=== PATIENT | female | born 1945 | race Caucasian/White ===

== ENCOUNTER 2021-06-27 08:38 | Inpatient (IN) ==
[2021-06-27] MEDS ORDERED: KETOROLAC TROMETHAMINE 15 MG/ML VIAL IV ONE (09:01)
[2021-06-27] MEDS ORDERED: SODIUM CHLORIDE 0.9% 1000ML 1,000 ML IV ONE (09:01)
--- NOTE | 2021-06-27 09:05 | Emergency Department Note ---
Impression & Plan Cavitary lung disease, Pneumonia, Leukocytosis ED Provider Note NAME: JOANN FRANKS AGE: 75 SEX: F : 1945 ARRIVES VIA: Walk-In INFORMANT: Patient ED PROVIDER(S): Fede Ortiz DO CHIEF COMPLAINT: chest pain and shortness of breath HPI: Patient is a 75-year-old female with past medical history of hypertension and hyperlipidemia that presents to the ER for pleuritic right-sided chest pain which has been present since June 19. She also admits to a cough and runny nose. The pain is significantly worse with breathing or coughing. She does also admit to a sore throat. She had a fever today of 100.4. She has had chills and night sweats intermittently. She was referred in by her PCP. Recent travel to [place]. No belly pain nausea vomiting or diarrhea. No dysuria urgency or frequency. No other exacerbating or remitting factors. ROS: See above HPI for pertinent positives & negatives. A total of 10 systems reviewed and were otherwise negative. PAST MEDICAL HISTORY:See Below PAST SURGICAL HISTORY:See Below FAMILY HISTORY:See Below SOCIAL HISTORY:See Below HOME MEDICATIONS:See Below ALLERGIES:See Below VITALS:See Below PHYSICAL EXAMINATION: GENERAL: Sitting up in bed, alert, well appearing, well nourished, no distress, non-toxic EYE EXAM: normal conjunctiva. PERRL and EOM's grossly intact. OROPHARYNX: no exudate, no erythema, lips, buccal mucosa, and tongue normal and mucous membranes are moist NECK: supple, no nuchal rigidity, no adenopathy, non-tender CHEST: Right upper anterior chest wall pain on palpation LUNGS: Clear to auscultation. Normal chest wall mechanics HEART: no murmurs, S1 normal and S2 normal ABDOMEN: abdomen soft, non-tender, normo-active bowel sounds, no masses, no rebound or guarding. UPPER EXTREMITIES: upper extremities are grossly normal. LOWER EXTREMITIES: No pitting edema. NEURO EXAM: Normal sensorium, cranial nerves II-XII grossly intact, normal speech, no gross weakness of arms, no gross weakness of legs. MEDICAL DECISION MAKING: Patient is a 75-year-old female recently visited [place] presents the ER for upper respiratory symptoms associate with fever. IV was established blood work was obtained. Labs show leukocytosis of 14.8 thousand. No significant anemia. Chest x-ray with a lung mass. D-dimer was elevated. BMP with LFTs bilirubin and lipase is unremarkable. UA was contaminated. CT angio of the of the chest shows cavitary lesion in the right upper chest. Influenza and Covid were negative. Patient was given IV vancomycin and she was initially given Rocephin but this was switched to Zosyn to cover anaerobes. Did discuss with the hospitalist Dr. Meyer in regards to possible TB versus fungal infections. He was agreeable to seeing the patient and admitted. Patient was updated bedside. Triage Nursing notes reviewed. Limited review of prior medical records performed Vital Signs: reviewed and remarkable for HTN and tachy Differential diagnosis: Differential diagnoses includes but is not limited to acute coronary syndrome, myocardial infarction, pericarditis, pulmonary embolus, aortic dissection, pneumonia, pneumothorax, musculoskeletal, shingles, esophageal. ER treatment provided: See below Diagnostics interpreted by me: ECG: Sinus tachycardia rate of 102 Normal axis No PVCs QTC 430 Cardiac Monitoring: An order was placed for continuous cardiac monitoring. The monitor shows a rate of 101 with sinus rhythm. Laboratory studies: As stated above and show below. Imaging studies: CT angio of the chest shows no PEs but cavitary lung lesion with a pleural effusion Consultation(s): Discussed with the hospitalist from [facility] as stated above Procedures: none Critical Care: None Past Med/Surg History Medical History (Updated 06/27/21 @ 14:57 by Fede Ortiz DO) Dyslipidemia Hypertension Social History Smoking Status: Never smoker Hx Alcohol Use: Yes Alcohol type: wine Hx Substance Use: No Preferred Language: Bulgarian [employer]umbling [employer] Super[employer] Required: No Current Living Situation: Spouse Feels Safe at Home: Yes Assistive Devices: None Allergies Allergies Allergy/AdvReac Type Severity Reaction Status Date / Time morphine AdvReac Severe SEVERE Unverified 06/27/21 12:28 SEDATION Home Meds Home Medications Medication Instructions Recorded Confirmed multivitamin 1 tab PO QAM 08/15/19 06/27/21 nortriptyline 10 mg capsule 10 mg PO HS 08/15/19 06/27/21 vitamin B complex 1 tab PO QAM 08/15/19 06/27/21 cholecalciferol (vitamin D3) 1,250 50,000 mcg PO QAM 02/06/20 06/27/21 mcg (50,000 unit) tablet famotidine 10 mg tablet (Pepcid AC) 10 mg PO DAILY 02/06/20 06/27/21 rosuvastatin 20 mg tablet (Crestor) 20 mg PO DAILY 02/06/20 06/27/21 amlodipine 2.5 mg tablet 2.5 mg PO HS 01/19/21 06/27/21 gabapentin 100 mg capsule 200 mg PO HS 01/19/21 06/27/21 gabapentin 300 mg capsule 300 mg PO HS 01/19/21 06/27/21 Results & Data (ED) Vital Signs Vital Signs - 24 hr 06/27/21 08:43 06/27/21 08:54 06/27/21 08:59 Temperature 36.3 C L Temperature Source Temporal Artery Scan Pulse Rate 114 H 103 H Pulse Rate [Apical] Pulse Rate from SpO2 Sensor 103 H Pulse Rhythm Regular Pulse Rhythm [Apical] Pulse Strength Normal Pulse Strength [Apical] Respiratory Rate 20 28 H Respiratory Effort / Characteristics Non-Labored Spontaneous Short of Breath SOB on Exertion Respiratory Depth Normal Respiratory Pattern Regular Blood Pressure 126/76 Blood Pressure [Right Arm] Blood Pressure Mean 92 Blood Pressure Mean [Right Arm] Blood Pressure Position Sitting Blood Pressure Position [Right Arm] Pulse Oximetry 96 96 96 Oxygen Delivery Method Room Air Room Air Sepsis Recent Fever Within 48 Hours No Sepsis New/Unexplained Change in Mental Status No Sepsis Action Taken by Nursing No Action Required 06/27/21 09:00 06/27/21 09:11 06/27/21 09:13 Temperature Temperature Source Pulse Rate 102 H 102 H Pulse Rate [Apical] 106 H Pulse Rate from SpO2 Sensor 103 H Pulse Rhythm Pulse Rhythm [Apical] Regular Pulse Strength Pulse Strength [Apical] Normal Respiratory Rate 25 H 20 Respiratory Effort / Characteristics Non-Labored Spontaneous Non-Labored Respiratory Depth Normal Normal Respiratory Pattern Regular Regular Blood Pressure 137/75 Blood Pressure [Right Arm] 141/80 H Blood Pressure Mean 95 Blood Pressure Mean [Right Arm] 100 Blood Pressure Position Blood Pressure Position [Right Arm] Sitting Pulse Oximetry 95 97 Oxygen Delivery Method Room Air Room Air Room Air Sepsis Recent Fever Within 48 Hours Sepsis New/Unexplained Change in Mental Status Sepsis Action Taken by Nursing 06/27/21 09:15 06/27/21 09:30 06/27/21 09:38 Temperature Temperature Source Pulse Rate 90 108 H 90 Pulse Rate [Apical] Pulse Rate from SpO2 Sensor 91 H 91 H Pulse Rhythm Pulse Rhythm [Apical] Pulse Strength Pulse Strength [Apical] Respiratory Rate 31 H 25 H 18 Respiratory Effort / Characteristics Respiratory Depth Respiratory Pattern Blood Pressure 138/68 130/72 Blood Pressure [Right Arm] Blood Pressure Mean 91 91 Blood Pressure Mean [Right Arm] Blood Pressure Position Blood Pressure Position [Right Arm] Pulse Oximetry 97 95 Oxygen Delivery Method Sepsis Recent Fever Within 48 Hours Sepsis New/Unexplained Change in Mental Status Sepsis Action Taken by Nursing 06/27/21 09:44 06/27/21 10:02 06/27/21 10:15 Temperature Temperature Source Pulse Rate 84 Pulse Rate [Apical] 86 Pulse Rate from SpO2 Sensor 85 84 Pulse Rhythm Pulse Rhythm [Apical] Pulse Strength Pulse Strength [Apical] Respiratory Rate 20 20 Respiratory Effort / Characteristics Non-Labored Respiratory Depth Normal Respiratory Pattern Blood Pressure 115/78 Blood Pressure [Right Arm] 115/78 Blood Pressure Mean 90 Blood Pressure Mean [Right Arm] 90 Blood Pressure Position Blood Pressure Position [Right Arm] Pulse Oximetry 99 97 94 Oxygen Delivery Method Room Air Sepsis Recent Fever Within 48 Hours Sepsis New/Unexplained Change in Mental Status Sepsis Action Taken by Nursing 06/27/21 10:30 06/27/21 10:45 06/27/21 11:14 Temperature Temperature Source Pulse Rate 84 89 97 H Pulse Rate [Apical] Pulse Rate from SpO2 Sensor 84 88 93 H Pulse Rhythm Pulse Rhythm [Apical] Pulse Strength Pulse Strength [Apical] Respiratory Rate 13 22 27 H Respiratory Effort / Characteristics Respiratory Depth Respiratory Pattern Blood Pressure 119/80 Blood Pressure [Right Arm] Blood Pressure Mean 93 Blood Pressure Mean [Right Arm] Blood Pressure Position Blood Pressure Position [Right Arm] Pulse Oximetry 96 97 94 Oxygen Delivery Method Sepsis Recent Fever Within 48 Hours Sepsis New/Unexplained Change in Mental Status Sepsis Action Taken by Nursing 06/27/21 11:15 06/27/21 11:30 06/27/21 12:00 Temperature Temperature Source Pulse Rate 90 85 97 H Pulse Rate [Apical] Pulse Rate from SpO2 Sensor 91 H 84 83 Pulse Rhythm Pulse Rhythm [Apical] Pulse Strength Pulse Strength [Apical] Respiratory Rate 22 17 24 Respiratory Effort / Characteristics Respiratory Depth Respiratory Pattern Blood Pressure 130/72 139/76 Blood Pressure [Right Arm] Blood Pressure Mean 91 97 Blood Pressure Mean [Right Arm] Blood Pressure Position Blood Pressure Position [Right Arm] Pulse Oximetry 97 94 95 Oxygen Delivery Method Sepsis Recent Fever Within 48 Hours Sepsis New/Unexplained Change in Mental Status Sepsis Action Taken by Nursing 06/27/21 12:30 06/27/21 12:34 06/27/21 13:00 Temperature Temperature Source Pulse Rate 85 98 H 95 H Pulse Rate [Apical] Pulse Rate from SpO2 Sensor 85 85 95 H Pulse Rhythm Pulse Rhythm [Apical] Pulse Strength Pulse Strength [Apical] Respiratory Rate 15 18 18 Respiratory Effort / Characteristics Respiratory Depth Respiratory Pattern Blood Pressure 138/78 125/74 Blood Pressure [Right Arm] Blood Pressure Mean 98 91 Blood Pressure Mean [Right Arm] Blood Pressure Position Blood Pressure Position [Right Arm] Pulse Oximetry 96 98 98 Oxygen Delivery Method Sepsis Recent Fever Within 48 Hours Sepsis New/Unexplained Change in Mental Status Sepsis Action Taken by Nursing Laboratory Data Result diagrams: 06/27/21 09:04 06/27/21 09:04 Lab Results 06/27/21 06/27/21 06/27/21 Range/Units 08:55 08:55 09:04 WBC (4.8-10.8) K/uL RBC (4.2-5.4) M/uL Hgb (12.0-16.0) g/dL Hct (37-47) % MCV (80-100) fL MCH (25-34) pg MCHC (32-36) g/dL RDW Std Deviation (36.4-46.3) fL RDW Coeff of Duran (11.5-14.5) % Plt Count (130-400) K/uL MPV (7.4-10.4) fL Immature Gran % (Auto) % Neut % (Auto) % Lymph % (Auto) % Wetzel % (Auto) % Eos % (Auto) % Baso % (Auto) % Neut # (Auto) (1.4-6.5) K/uL Lymph # (Auto) (1.2-3.4) K/uL Wetzel # (Auto) (0.11-0.59) K/uL Eos # (Auto) (0-0.5) K/uL Baso # (Auto) (0-0.2) K/uL Immature Gran # (Auto) (0.00-0.02) K/uL D-Dimer 1980 H* (0-500) ug/L FEU Sodium (136-145) mmol/L Potassium (3.5-5.1) mmol/L Chloride (98-107) mmol/L Carbon Dioxide (21-32) mmol/L Anion Gap (3-11) BUN (6-23) mg/dl Creatinine (0.6-1.2) mg/dl Est Cr Clr Drug Dosing ml/min Est GFR ( Amer) ml/min Est GFR (Non-Af Amer) ml/min BUN/Creatinine Ratio (10-20) Glucose (70-99(Fasting)) mg/dl Calcium (8.5-10.1) mg/dl Total Bilirubin (0.2-1.0) mg/dl AST (13-39) U/L ALT (7-52) U/L Alkaline Phosphatase (34-104) U/L Troponin I (0-0.04) ng/ml Total Protein (6.0-8.3) gm/dl Albumin (3.4-5.0) gm/dl Globulin (2.5-4.0) gm/dl Albumin/Globulin Ratio (0.9-2) Lipase (11-82) U/L Procalcitonin (0-0.5) ng/ml Urine Color Urine Appearance (Clear) Urine pH (4.5-7.5) Ur Specific Byars (1.000-1.030) Urine Protein (Negative) Urine Glucose (UA) (Negative) Urine Ketones (Negative) Urine Blood (Negative) Urine Nitrite (Negative) Urine Bilirubin (Negative) Urine Urobilinogen (Negative) Ur Leukocyte Esterase (Negative) Urine WBC (Auto) (0-5) /hpf Urine RBC (Auto) (0-4) /hpf U Hyaline Cast (Auto) (0-5) /lpf U Epithel Cells (Auto) (0-5) /lpf Urine Bacteria (Auto) (Negative) Influ A Molecular Assay Negative (Negative) Influ B Molecular Assay Negative (Negative) SARS-CoV-2, RNA, NAAT NEGATIVE (NEGATIVE) 06/27/21 06/27/21 06/27/21 Range/Units 09:04 09:04 10:03 WBC 14.88 H (4.8-10.8) K/uL RBC 4.00 L (4.2-5.4) M/uL Hgb 12.8 (12.0-16.0) g/dL Hct 37.5 (37-47) % MCV 93.8 (80-100) fL MCH 32.0 (25-34) pg MCHC 34.1 (32-36) g/dL RDW Std Deviation 43.5 (36.4-46.3) fL RDW Coeff of Duran 12.7 (11.5-14.5) % Plt Count 366 (130-400) K/uL MPV 8.9 (7.4-10.4) fL Immature Gran % (Auto) 0.2 % Neut % (Auto) 77.1 % Lymph % (Auto) 9.1 % Wetzel % (Auto) 10.0 % Eos % (Auto) 3.4 % Baso % (Auto) 0.2 % Neut # (Auto) 11.47 H (1.4-6.5) K/uL Lymph # (Auto) 1.35 (1.2-3.4) K/uL Wetzel # (Auto) 1.49 H (0.11-0.59) K/uL Eos # (Auto) 0.51 H (0-0.5) K/uL Baso # (Auto) 0.03 (0-0.2) K/uL Immature Gran # (Auto) 0.03 H (0.00-0.02) K/uL D-Dimer (0-500) ug/L FEU Sodium 136 (136-145) mmol/L Potassium 3.6 (3.5-5.1) mmol/L Chloride 102 (98-107) mmol/L Carbon Dioxide 25 (21-32) mmol/L Anion Gap 9 (3-11) BUN 8 (6-23) mg/dl Creatinine 0.66 (0.6-1.2) mg/dl Est Cr Clr Drug Dosing 64.6 ml/min Est GFR ( Amer) 100.9 ml/min Est GFR (Non-Af Amer) 87.0 ml/min BUN/Creatinine Ratio 12.1 (10-20) Glucose 128 H (70-99(Fasting)) mg/dl Calcium 9.0 (8.5-10.1) mg/dl Total Bilirubin 0.6 (0.2-1.0) mg/dl AST 12 L (13-39) U/L ALT 10 (7-52) U/L Alkaline Phosphatase 92 (34-104) U/L Troponin I < 0.03 (0-0.04) ng/ml Total Protein 7.4 (6.0-8.3) gm/dl Albumin 3.5 (3.4-5.0) gm/dl Globulin 3.9 (2.5-4.0) gm/dl Albumin/Globulin Ratio 0.9 (0.9-2) Lipase 11 (11-82) U/L Procalcitonin (0-0.5) ng/ml Urine Color Dark Yellow Urine Appearance Clear (Clear) Urine pH 6.5 (4.5-7.5) Ur Specific Byars 1.018 (1.000-1.030) Urine Protein Trace H (Negative) Urine Glucose (UA) Negative (Negative) Urine Ketones 1+ H (Negative) Urine Blood Negative (Negative) Urine Nitrite Negative (Negative) Urine Bilirubin Negative (Negative) Urine Urobilinogen Negative (Negative) Ur Leukocyte Esterase 1+ H (Negative) Urine WBC (Auto) 5-10 H (0-5) /hpf Urine RBC (Auto) 5-10 H (0-4) /hpf U Hyaline Cast (Auto) 1-5 (0-5) /lpf U Epithel Cells (Auto) >30 H (0-5) /lpf Urine Bacteria (Auto) Negative (Negative) Influ A Molecular Assay (Negative) Influ B Molecular Assay (Negative) SARS-CoV-2, RNA, NAAT (NEGATIVE) 06/27/21 Range/Units 13:03 WBC (4.8-10.8) K/uL RBC (4.2-5.4) M/uL Hgb (12.0-16.0) g/dL Hct (37-47) % MCV (80-100) fL MCH (25-34) pg MCHC (32-36) g/dL RDW Std Deviation (36.4-46.3) fL RDW Coeff of Duran (11.5-14.5) % Plt Count (130-400) K/uL MPV (7.4-10.4) fL Immature Gran % (Auto) % Neut % (Auto) % Lymph % (Auto) % Wetzel % (Auto) % Eos % (Auto) % Baso % (Auto) % Neut # (Auto) (1.4-6.5) K/uL Lymph # (Auto) (1.2-3.4) K/uL Wetzel # (Auto) (0.11-0.59) K/uL Eos # (Auto) (0-0.5) K/uL Baso # (Auto) (0-0.2) K/uL Immature Gran # (Auto) (0.00-0.02) K/uL D-Dimer (0-500) ug/L FEU Sodium (136-145) mmol/L Potassium (3.5-5.1) mmol/L Chloride (98-107) mmol/L Carbon Dioxide (21-32) mmol/L Anion Gap (3-11) BUN (6-23) mg/dl Creatinine (0.6-1.2) mg/dl Est Cr Clr Drug Dosing ml/min Est GFR ( Amer) ml/min Est GFR (Non-Af Amer) ml/min BUN/Creatinine Ratio (10-20) Glucose (70-99(Fasting)) mg/dl Calcium (8.5-10.1) mg/dl Total Bilirubin (0.2-1.0) mg/dl AST (13-39) U/L ALT (7-52) U/L Alkaline Phosphatase (34-104) U/L Troponin I (0-0.04) ng/ml Total Protein (6.0-8.3) gm/dl Albumin (3.4-5.0) gm/dl Globulin (2.5-4.0) gm/dl Albumin/Globulin Ratio (0.9-2) Lipase (11-82) U/L Procalcitonin 0.21 (0-0.5) ng/ml Urine Color Urine Appearance (Clear) Urine pH (4.5-7.5) Ur Specific Byars (1.000-1.030) Urine Protein (Negative) Urine Glucose (UA) (Negative) Urine Ketones (Negative) Urine Blood (Negative) Urine Nitrite (Negative) Urine Bilirubin (Negative) Urine Urobilinogen (Negative) Ur Leukocyte Esterase (Negative) Urine WBC (Auto) (0-5) /hpf Urine RBC (Auto) (0-4) /hpf U Hyaline Cast (Auto) (0-5) /lpf U Epithel Cells (Auto) (0-5) /lpf Urine Bacteria (Auto) (Negative) Influ A Molecular Assay (Negative) Influ B Molecular Assay (Negative) SARS-CoV-2, RNA, NAAT (NEGATIVE) Administered Medications Discontinued Medications Sodium Chloride (Nss 1000ml) 1,000 mls @ 999 mls/hr IV .[id number] ONE Stop: 06/27/21 10:01 Last Infusion: 06/27/21 10:15 Dose: 0 mls/hr Documented by: [id number] Admin: 06/27/21 09:09 Dose: 999 mls/hr Documented by: [id number] Ceftriaxone Sodium (Rocephin) 1,000 mg in 50 mls @ 100 mls/hr IV NOW STA Stop: 06/27/21 12:23 Last Infusion: 06/27/21 13:25 Dose: 0 mls/hr Documented by: [id number] Infusion: 06/27/21 12:36 Dose: 0 mls/hr Documented by: [id number] Admin: 06/27/21 12:19 Dose: 100 mls/hr Documented by: [id number] Vancomycin HCl 1,250 mg/ (Sodium Chloride) 525 mls @ 200 mls/hr IV NOW ONE Stop: 06/27/21 14:40 Last Admin: 06/27/21 13:21 Dose: 200 mls/hr Documented by: [id number] Piperacillin Sod/Tazobactam Sod (Zosyn) 4.5 gm in 120 mls @ 240 mls/hr IV NOW ONE Stop: 06/27/21 12:44 Last Infusion: 06/27/21 13:25 Dose: 0 mls/hr Documented by: [id number] Admin: 06/27/21 12:36 Dose: 240 mls/hr Documented by: [id number] Ioversol (Optiray 320 125ml) 120 ml IV ONCE ONE Stop: 06/27/21 11:09 Last Admin: 06/27/21 11:09 Dose: 120 ml Documented by: [id number] Ketorolac Tromethamine (Ketorolac Tromethamine 15 Mg/Ml Vial) 15 mg IV NOW ONE Stop: 06/27/21 09:02 Last Admin: 06/27/21 09:10 Dose: 15 mg Documented by: [id number] Imaging Data Radiologist's Impression: Chest X-Ray 06/27/21 09:00 XR chest 1V portable HISTORY: Atypical Chest Pain COMPARISON: Chest 01/19/2021. FINDINGS: No pneumothorax. Trace right pleural effusion. The heart is normal in size. A few left basilar linear densities consistent with subsegmental atelectasis. Focal peripheral opacity within the right upper lobe which is new from the prior study. This favors a pneumonia given the short interval change. Right hilar prominence suggestive of associated lymphadenopathy. IMPRESSION: Interval development of a focal peripheral airspace opacity within the right upper lobe which likely represents a pneumonia given the short interval change. There is also fullness within the right hilum suggestive of associated lymphadenopathy. One-month chest x-ray follow-up recommended to ensure resolution. ACT 112: Positive. There are findings on this exam that require communication between the performing entity and the patient following Patient Test Result Information Act ([place] Act 112) guidelines. Electronically signed by: Clemente Goff M.D. 06/27/2021 9:58 AM Chest CTA 06/27/21 10:19 CHEST CTA for PULMONARY ARTERIES CT DOSE: 270.91 mGy.cm HISTORY: Atypical chest pain. TECHNIQUE: Multiaxial CT images of the chest were performed following the intravenous administration of contrast to evaluate the pulmonary arteries. Maximal intensity projection images were also obtained. A dose lowering t echnique was utilized adhering to the principles of ALARA. COMPARISON STUDY: Chest x-ray 06/27/2021 and 01/19/2021. FINDINGS: Limited views of the upper abdomen demonstrate a normal liver, spleen, and visualized adrenal glands. The thyroid gland enhances normally. No pericardial effusion. There is a small right and trace left pleural effusions. Normal esophagus. There is right paratracheal, anterior mediastinal, subcarinal, and right hilar lymphadenopathy. Dominant right hilar lymph node measures 2.4 cm. No left hilar lymphadenopathy. The heart is normal in size. Normal caliber thoracic aorta with no evidence for dissection. Mass effect along the right upper lobe pulmonary arteries due to the right hilar lymphadenopathy. Otherwise, no filling defects within the pulmonary arteries to suggest a pulmonary embolus. No suspicious lytic or blastic osseous lesions. No pneumothorax. There is mild narrowing within the right central bronchi due to the mass effect from the lymphadenopathy. A few bibasilar linear densities consistent with subsegmental atelectasis. Focal round consolidation within the periphery the right upper lobe measuring 4.5 cm. This demonstrates central hypodensity measuring approximately 1.9 cm. Therefore, this may represent a developing cavitary pneumonia, lung abscess, or possibly a mass. There is associated interlobular septal thickening and multiple scattered irregular cavitary nodules within the surrounding right upper lobe.. Dominant satellite nodule on image 221 measures 7 mm. There are a few additional subcentimeter scattered irregular nodules within the lungs with the dominant nodule within the left upper lobe on image 223 measuring 6 mm. Some of these demonstrate small groundglass halos. IMPRESSION: 1. No evidence for pulmonary embolus. 2. A 4.5 cm focal opacity within the periphery of the right upper lobe which corresponds to the chest x-ray abnormality. There is a small focus of central hypodensity. Therefore, this favors a developing cavitary pneumonia or lung abscess. This could be due to a bacterial pneumonia, fungal pneumonia, or possibly tuberculosis. Scattered pulmonary nodules and interlobular septal thickening within the right upper lobe may represent additional infectious change. 3. There is bulky right hilar and mediastinal lymphadenopathy which may be reactive. However, the right upper lobe focal opacity and lymphadenopathy could also be due to a neoplastic process with possibly lymphangitic spread given the interlobular septal thickening within the right upper lobe. Therefore, pulmonary consultation recommended. 4. Additional findings as described above. ACT 112: Negative or not required by law. Electronically signed by: Clemente Goff M.D. 06/27/2021 11:55 AM Discharge Plan Visit Data Chief Complaint: Shortness of Breath/Dyspnea Stated Complaint: SOB, DIZZINESS, HEADACHES, REF BY DOC ED Provider: Fede Ortiz Discharge Problem: Cavitary lung disease, Pneumonia, Leukocytosis Patient Disposition: Admitted As Inpatient Discharge Instructions Interventions: ED Discharge Assessment Last Done: 06/27/21 14:30
[2021-06-27 09:21] LABS: Basophils # (auto) 0.03 K/uL (0-0.2); Basophils % (auto) 0.2 %; Eosinophils # (auto) 0.51 K/uL (0-0.5); Eosinophils % (auto) 3.4 %; Hematocrit (blood only) 37.5 % (37-47); Hemoglobin 12.8 g/dL (12.0-16.0); Immature Granulocytes # (auto) 0.03 K/uL (0.00-0.02); Immature Granulocytes % (auto) 0.2 %; Lymphocytes # (auto) 1.35 K/uL (1.2-3.4); Lymphocytes % (auto) 9.1 %; Mean Corpuscular Hgb Conc 34.1 g/dL (32-36); Mean Corpuscular Volume 93.8 fL (80-100); Mean Platelet Volume 8.9 fL (7.4-10.4); Monocytes # (auto) 1.49 K/uL (0.11-0.59); Neutrophils # (auto) 11.47 K/uL (1.4-6.5); Neutrophils % (auto) 77.1 %; Platelet Count 366 K/uL (130-400); RDW Coefficient of Variation 12.7 % (11.5-14.5); RDW Standard Deviation 43.5 fL (36.4-46.3); White Blood Count 14.88 K/uL (4.8-10.8)
[2021-06-27 09:37] LABS: Influenza A virus by PCR Negative (Negative); Influenza B virus by PCR Negative (Negative)
[2021-06-27 09:44] LABS: Troponin I < 0.03 ng/ml (0-0.04)
[2021-06-27 09:47] LABS: Alanine Aminotransferase 10 U/L (7-52); Albumin Globulin Ratio 0.9 (0.9-2); Albumin Level 3.5 gm/dl (3.4-5.0); Alkaline Phosphatase 92 U/L (34-104); Anion Gap 9 (3-11); Aspartate Aminotransferase 12 U/L (13-39); BUN Creatinine Ratio 12.1 (10-20); Bilirubin,Total 0.6 mg/dl (0.2-1.0); Blood Urea Nitrogen 8 mg/dl (6-23); Carbon Dioxide 25 mmol/L (21-32); Chloride 102 mmol/L (98-107); Creatinine Clr Calc Pharmacy 64.6 ml/min; Est GFR (African American) 100.9 ml/min; Globulin 3.9 gm/dl (2.5-4.0); Glucose 128 mg/dl (70-99(Fasting)); Lipase 11 U/L (11-82); Potassium 3.6 mmol/L (3.5-5.1); Sodium 136 mmol/L (136-145); Total Protein 7.4 gm/dl (6.0-8.3)
--- NOTE | 2021-06-27 10:00 | XRay Report ---
XR chest 1V portable HISTORY: Atypical Chest Pain COMPARISON: Chest 01/19/2021. FINDINGS: No pneumothorax. Trace right pleural effusion. The heart is normal in size. A few left basi lar linear densities consistent with subsegmental atelectasis. Focal peripheral opacity within the ri ght upper lobe which is new from the prior study. This favors a pneumonia given the short interval ch aleksey. Right hilar prominence suggestive of associated lymphadenopathy. IMPRESSION: Interval development of a focal peripheral airspace opacity within the right upper lobe which likely represents a pneumonia given the short interval change. There is also fullness within the right hilum suggestive of associated lymphadenopathy. One-month chest x-ray follow-up recommended to ensure reso lution. ACT 112: Positive. There are findings on this exam that require communication between the performing entity and the patient following Patient Test Result [place] Act [place] Act 112) guidelines. Electronically signed by: Clemente Goff M.D. 06/27/2021 9:58 AM
[2021-06-27 10:18] LABS: D Dimer 1980 ug/L FEU (0-500)
[2021-06-27 10:22] LABS: Appearance Urine Clear (Clear); Bacteria Urine Automated Negative (Negative); Bilirubin Urine Negative (Negative); Blood Urine Negative (Negative); Color Urine Dark Yellow; Epithelial Cell Urine Auto >30 /lpf (0-5); Glucose Urine UA Negative (Negative); Ketones Urine 1+ (Negative); Leukocyte Esterase Urine 1+ (Negative); Nitrite Urine Negative (Negative); Protein Urine Trace (Negative); Specific Gravity Urine 1.018 (1.000-1.030); Urobilinogen Urine Negative (Negative); pH Urine 6.5 (4.5-7.5)
[2021-06-27] MEDS ORDERED: OPTIRAY 320 125ml IV ONE (11:08)
[2021-06-27] MEDS ORDERED: cefTRIAXone SODIUM 1,000 MG/50 ML BAG IV STA (11:54)
--- NOTE | 2021-06-27 11:57 | CT Scan Report ---
CHEST CTA for PULMONARY ARTERIES CT DOSE: 270.91 mGy.cm HISTORY: Atypical chest pain. TECHNIQUE: Multiaxial CT images of the chest were performed following the intravenous administration of contrast to evaluate the pulmonary arteries. Maximal intensity projection images were also obtaine d. A dose lowering technique was utilized adhering to the principles of ALARA. COMPARISON STUDY: Chest x-ray 06/27/2021 and 01/19/2021. FINDINGS: Limited views of the upper abdomen demonstrate a normal liver, spleen, and visualized adren al glands. The thyroid gland enhances normally. No pericardial effusion. There is a small right and t race left pleural effusions. Normal esophagus. There is right paratracheal, anterior mediastinal, sub carinal, and right hilar lymphadenopathy. Dominant right hilar lymph node measures 2.4 cm. No left hi lar lymphadenopathy. The heart is normal in size. Normal caliber thoracic aorta with no evidence for dissection. Mass effect along the right upper lobe pulmonary arteries due to the right hilar lymphade nopathy. Otherwise, no filling defects within the pulmonary arteries to suggest a pulmonary embolus. No suspicious lytic or blastic osseous lesions. No pneumothorax. There is mild narrowing within the r ight central bronchi due to the mass effect from the lymphadenopathy. A few bibasilar linear densitie s consistent with subsegmental atelectasis. Focal round consolidation within the periphery the right upper lobe measuring 4.5 cm. This demonstrates central hypodensity measuring approximately 1.9 cm. Th erefore, this may represent a developing cavitary pneumonia, lung abscess, or possibly a mass. There is associated interlobular septal thickening and multiple scattered irregular cavitary nodules within the surrounding right upper lobe.. Dominant satellite nodule on image 221 measures 7 mm. There are a few additional subcentimeter scattered irregular nodules within the lungs with the dominant nodule w ithin the left upper lobe on image 223 measuring 6 mm. Some of these demonstrate small groundglass johnson los. IMPRESSION: 1. No evidence for pulmonary embolus. 2. A 4.5 cm focal opacity within the periphery of the right upper lobe which corresponds to the chest x-ray abnormality. There is a small focus of central hypodensity. Therefore, this favors a developin g cavitary pneumonia or lung abscess. This could be due to a bacterial pneumonia, fungal pneumonia, o r possibly tuberculosis. Scattered pulmonary nodules and interlobular septal thickening within the ri ght upper lobe may represent additional infectious change. 3. There is bulky right hilar and mediastinal lymphadenopathy which may be reactive. However, the rig ht upper lobe focal opacity and lymphadenopathy could also be due to a neoplastic process with possib ly lymphangitic spread given the interlobular septal thickening within the right upper lobe. Therefor e, pulmonary consultation recommended. 4. Additional findings as described above. ACT 112: Negative or not required by law. Electronically signed by: Clemente Goff M.D. 06/27/2021 11:55 AM
[2021-06-27] MEDS ORDERED: VANCOMYCIN HCL 1,250 MG in SODIUM CHLORIDE 0.9% 500 ML IV ONE (12:03)
[2021-06-27] MEDS ORDERED: VANCOMYCIN CONSULT ACTIVE PRN (12:03)
[2021-06-27] MEDS ORDERED: PIPERACILLIN/TAZOBACTAM 4.5 GM/120 ML BAG IV ONE (12:15)
--- NOTE | 2021-06-27 13:24 | History & Physical Report ---
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 R/o bacterial pneumonia vs others. Continue vanc/zosyn, fluconazole. If MRSA nares negative, can discontinue vancomycin. C heck sputum culture, blood culture, procalcitonin, serology for coccidiomycosis, fungitell. Consult pulm for ?bronchoscopy for definitive diagnosis. Consider ID eval if needed. F/u on labs. I have very low suspicion for TB, hence will not order airborne isolation or work up for the same. Low suspicion for malignancy at present. Defer further work up to pulmonology. Tylenol prn for pain. HTN- stable, continue norvasc HLD- continue crestor RLS- continue gabapentin 500 hs. Does not take pamelor or trazodone anymore. GERD- continue pepcid. Add PPI if needed. Code status- full code but she does not want to be aggressive DVT prophylaxis- sc lovenox History of Present Illness Chief Complaint: Pleuritic chest pain Primary Care Provider: Jaz Green MD 75 year old female with h/o HTN, HLD, PMR now off of prednisone since 03/2021, RLS on neurontin, who presented to the ED with right sided pleuritic chest pain since 06/29. Patient was in [place] for 2 months, in a trailer and going around and came back on 06/12. Also was in [place] for couple weeks in the beginning. Had some dizziness and headaches intermittently. Saw PCP on 06/18 for runny nose, dizziness and was prescribed flonase which helped somewhat. But on 06/19, she developed pleuritic chest pain on right side and has been taking tylenol. Also complains of chills, drenching sweats, and bilateral pain for the past week. Denies any skin rash. Some dry cough but she had it in the past too. Had fever of 100.4 F in the morning today. She called her PCP and was instructed to come to the ED. She was with her who does not have any symptoms. Denies any history of weight loss. No exposure to TB contacts. No h/o malignancy. In the ED, afebrile, hemodynamically stable. Saturating well in room air. Not sick looking. CXR and CT chest reviewed- showed cavitary pneumonia with lymphadenopathy. She was started on ceftriaxone followed by Feliberto/narayan in the ED. Hospitalist service was consulted for further management. Allergies Allergy/AdvReac Type Severity Reaction Status Date / Time morphine AdvReac Severe SEVERE Unverified 06/27/21 12:28 SEDATION Home Medications Medication Instructions Recorded Confirmed Type multivitamin 1 tab PO QAM 08/15/19 06/27/21 History nortriptyline 10 mg capsule 10 mg PO HS 08/15/19 06/27/21 History vitamin B complex 1 tab PO QAM 08/15/19 06/27/21 History cholecalciferol (vitamin D3) 1,250 50,000 mcg PO QAM 02/06/20 06/27/21 History mcg (50,000 unit) tablet famotidine 10 mg tablet (Pepcid AC) 10 mg PO DAILY 02/06/20 06/27/21 History rosuvastatin 20 mg tablet (Crestor) 20 mg PO DAILY 02/06/20 06/27/21 History amlodipine 2.5 mg tablet 2.5 mg PO HS 01/19/21 06/27/21 History gabapentin 100 mg capsule 200 mg PO HS 01/19/21 06/27/21 History gabapentin 300 mg capsule 300 mg PO HS 01/19/21 06/27/21 History Past Med/Surg History Medical History (Updated 06/27/21 @ 14:24 by Jb Callahan MD) Dyslipidemia Hypertension Social History Smoking Status: Never smoker Hx Alcohol Use: Yes Alcohol type: wine Hx Substance Use: No Preferred Language: Irish Guide Escort Required: No Current Living Situation: Spouse Feels Safe at Home: Yes Assistive Devices: None Review of Systems Review of Systems: All systems reviewed & are unremarkable except as noted in Subjective Physical Exam Physical Exam: General: Lying comfortably in bed, not in distress, on room air HEENT: EOMI, GILSON, MMM Chest: Clear breath sounds bilaterally, no wheezes or crackles CVS: Regular rate and rhythm, normal heart sounds, no murmur Abdomen: Soft, non tender, not distended, normal bowel sounds Neuro: Awake, alert, oriented, conversing well, non focal Extremities: No cyanosis, clubbing or edema Results & Data Results & Data ([facility]) Vital Signs (Past 12 Hours) Vital Signs Temp Pulse Pulse Resp BP BP Pulse Ox 06/27/21 11:15 90 22 97 06/27/21 11:14 97 H 27 H 94 06/27/21 10:45 89 22 97 06/27/21 10:30 84 13 119/80 96 06/27/21 10:15 84 20 94 06/27/21 10:02 97 06/27/21 09:44 86 20 115/78 115/78 99 06/27/21 09:38 90 18 130/72 95 06/27/21 09:30 108 H 25 H 138/68 06/27/21 09:15 90 31 H 97 06/27/21 09:11 102 H 20 97 06/27/21 09:00 102 H 106 H 25 H 137/75 141/80 H 95 06/27/21 08:59 103 H 28 H 96 06/27/21 08:54 96 06/27/21 08:43 36.3 C L 114 H 20 126/76 96 Code Status & VTE Plan VTE Prophylaxis Plan VTE Prophylaxis will be ordered: Yes
[2021-06-27] MEDS ORDERED: PIPERACILL/TAZOBAC CONSULT ACTIVE PRN (14:55)
[2021-06-27] MEDS ORDERED: ALBUT/IPRATROP 3MG/0.5MG NEB 3 ML VIAL NEB PRN (14:55)
[2021-06-27] MEDS: ACETAMINOPHEN 325 MG TAB PO PRN ×2 (15:30→21:45)
[2021-06-27] MEDS ORDERED: ENOXAPARIN INJ 40 MG/0.4 ML SYR SQ SCH (16:00)
[2021-06-27] MEDS: FLUCONAZOLE 100 MG TAB PO SCH (16:08)
[2021-06-27] MEDS: PIPERACILLIN/TAZOBACTAM 3.375 GM in DEXTROSE 5% 100 ML IV SCH (17:40)
[2021-06-27] MEDS: amLODIPine BESYLATE 5 MG TAB PO SCH (20:12)
[2021-06-27] MEDS: GABAPENTIN 100 MG CAP PO SCH (20:12)
[2021-06-27] MEDS: GABAPENTIN 300 MG CAP PO SCH (20:12)
[2021-06-28] MEDS: PIPERACILLIN/TAZOBACTAM 3.375 GM in DEXTROSE 5% 100 ML IV SCH ×2 (01:18→09:43)
[2021-06-28 06:09] LABS: Basophils # (auto) 0.04 K/uL (0-0.2); Basophils % (auto) 0.3 %; Eosinophils # (auto) 0.67 K/uL (0-0.5); Eosinophils % (auto) 5.9 %; Hematocrit (blood only) 34.2 % (37-47); Hemoglobin 11.8 g/dL (12.0-16.0); Immature Granulocytes # (auto) 0.02 K/uL (0.00-0.02); Immature Granulocytes % (auto) 0.2 %; Lymphocytes # (auto) 1.67 K/uL (1.2-3.4); Lymphocytes % (auto) 14.6 %; Mean Corpuscular Hemoglobin 32.1 pg (25-34); Mean Corpuscular Hgb Conc 34.5 g/dL (32-36); Mean Corpuscular Volume 92.9 fL (80-100); Mean Platelet Volume 8.6 fL (7.4-10.4); Monocytes # (auto) 1.22 K/uL (0.11-0.59); Monocytes % (auto) 10.7 %; Neutrophils # (auto) 7.81 K/uL (1.4-6.5); Neutrophils % (auto) 68.3 %; Platelet Count 354 K/uL (130-400); RDW Coefficient of Variation 12.7 % (11.5-14.5); RDW Standard Deviation 43.2 fL (36.4-46.3); Red Blood Count 3.68 M/uL (4.2-5.4); White Blood Count 11.43 K/uL (4.8-10.8)
[2021-06-28 06:32] LABS: Calcium 8.4 mg/dl (8.5-10.1); Creatinine Clr Calc Pharmacy 60.9 ml/min; Est GFR (African American) 98.9 ml/min; Est GFR (Non-African American) 85.4 ml/min; Potassium 3.4 mmol/L (3.5-5.1)
[2021-06-28] MEDS: FLUCONAZOLE 100 MG TAB PO SCH (07:49)
[2021-06-28] MEDS: FAMOTIDINE 10 MG TABLET PO SCH (07:50)
[2021-06-28] MEDS: ROSUVASTATIN CALCIUM 20 MG TAB PO SCH (07:50)
[2021-06-28] MEDS ORDERED: POTASSIUM CHLORIDE CRTAB 20 MEQ TABCR PO STA (10:07)
--- NOTE | 2021-06-28 10:36 | Electrocardiogram Report ---
Test Reason : Blood Pressure : / mmHG Vent. Rate : 102 BPM Atrial Rate : 102 BPM P-R Int : 136 ms QRS Dur : 078 ms QT Int : 330 ms P-R-T Axes : 052 028 046 degrees QTc Int : 430 ms Sinus tachycardia Otherwise normal ECG When compared with ECG of 19-JAN-2021 05:56, No significant change was found Confirmed by El Perez ([id number]) on 06/28/2021 10:35:53 AM Referred By: REFERRED SELF Confirmed By:El Perez
--- NOTE | 2021-06-28 10:43 | Pulmonary Consultation ---
Date of Consultation June 28, 2021 Assessment & Plan (1) Abnormal CT scan of lung: (2) Mediastinal adenopathy: Impression: 75-year-old female non-smoker with prior history of PMR on chronic prednisone up until about 3 months ago presenting with spiculated right upper lobe lesion with what appears to be extensive lymphangitic involvement as well as hilar and mediastinal adenopathy. Pattern is highly concerning for potential lung malignancy although other etiologies may have a similar ap pearance. Adenopathy is not common in coccidiomycosis and the patient did not present with peripheral eosinophilia. She was on steroids which raises the possibility of other opportunistic infections but she has been off the steroids for 3 months so this would be less likely. Recommendations: 1. The patient will be evaluated with bronchoscopy and endobronchial ultrasound with transbronchial needle aspiration of mediastinal and hilar lymph nodes. Dr. Rock will be assuming the service tomorrow and will coordinate the procedure. Will defer to him as to whether or not the procedure can be completed in the bronchoscopy suite or if he would prefer it be done in the OR. 2. Additional work-up will depend on results of TB NA. 3. With a normal procalcitonin, I think antibiotics can be safely discontinued. There is no role for antifungal therapy currently until were able to evaluate the etiology of the upper lobe lung lesion. 4. Coccidiomycosis serologies have been sent but may take several days to weeks to come back. 5. We will proceed with MRI of the brain with contrast given her headache and need for staging with lesion greater than 6. The patient will likely require outpatient PET scanning depending on results of the bronchoscopy. 7. N.p.o. after midnight. We will check coagulation profile. The above recommendations and plan were extensively discussed with the patient at the time of evaluation. Questions were answered to the best my ability. She expressed understanding and is in agreement with plan as outlined. History of Present Illness Attending Physician: Maxim Ellington MD History of Present Illness Asked by hospitalist to evaluate this patient admitted with abnormal CT scan. History is obtained from review electronic medical record and interview the patient at bedside. Patient is a 75-year-old female who is a lifelong non-smoker with a history of secondhand tobacco exposure who presented to the hospital with 2-week history of left-sided pleuritic chest pain. The patient has a history of PMR and was on steroids up until March. She does not appear to have ever been on prophylactic antibiotics during the course of her prednisone. She and her spent the winter in [place] and returned back to [place] in May. She has had some shortness of breath and a nonproductive cough. 2 weeks ago she developed chest pain which failed to improve. She was seen by her primary care provider as she had a variety of other complaints including headache and some hip pain. She was referred to physical therapy. When the chest discomfort failed to improve she presented to the emergency room where she was studied with a CT scan which demonstrated a spiculated right upper lobe mass with mediastinal and hilar adenopathy. There was concerned about coccidiomycosis given her travel to [facility] and she was placed on fluconazole. Cocci serologies have been sent. She demonstrated no eosinophilia. She was placed on Zosyn for antibiotic coverage despite a normal procalcitonin. Her white count was slightly elevated. Patient continues to have episodes of cough and chest discomfort. She not had any vision changes. No nausea or vomiting. No loss of consciousness. She denies skin rashes or lesions. No arthralgias other than her hip discomfort. Patient does not have any prior history of lung disease. There is no family history of lung cancer that she is aware of. 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 No other occupational or environmental exposures. Her remaining medical history and review of systems is unremarkable. Allergies Allergy/AdvReac Type Severity Reaction Status Date / Time morphine AdvReac Severe SEVERE Verified 06/27/21 15:31 SEDATION Home Medications Medication Instructions Recorded Confirmed Type multivitamin 1 tab PO QAM 08/15/19 06/27/21 History nortriptyline 10 mg capsule 10 mg PO HS 08/15/19 06/27/21 History vitamin B complex 1 tab PO QAM 08/15/19 06/27/21 History cholecalciferol (vitamin D3) 1,250 50,000 mcg PO QAM 02/06/20 06/27/21 History mcg (50,000 unit) tablet famotidine 10 mg tablet (Pepcid AC) 10 mg PO DAILY 02/06/20 06/27/21 History rosuvastatin 20 mg tablet (Crestor) 20 mg PO DAILY 02/06/20 06/27/21 History amlodipine 2.5 mg tablet 2.5 mg PO HS 01/19/21 06/27/21 History gabapentin 100 mg capsule 200 mg PO HS 01/19/21 06/27/21 History gabapentin 300 mg capsule 300 mg PO HS 01/19/21 06/27/21 History Patient History Medical History (Updated 06/28/21 @ 10:38 by Hunter Bishop MD) Dyslipidemia Hypertension Social History Smoking Status: Never smoker Hx Alcohol Use: Yes Alcohol type: beer and wine Hx Substance Use: No Preferred Language: Croatian Communication Ability: Effective Hr Administrative Assistant Required: No Beliefs That Will Affect Care: None Current Living Situation: Spouse Other Information That Helps Us Care for You: No Feels Safe at Home: Yes Safety Concerns: Feels Safe At This Time Assistive Devices: Glasses Review of Systems Review of Systems: All systems reviewed & are unremarkable except as noted in Subjective Physical Exam Constitutional: WD/WN, vitals as above Neck: trachea midline, no thyromegaly Respiratory: normal respiratory effort, lungs clear to auscultation Cardiovascular: RRR, no murmur, no edema Gastrointestinal (Abdomen): normal bowel sounds, soft, nontender, no hepatosplenomegaly Musculoskeletal: Extremities: extremities normal to inspection Skin: no rashes, warm and dry Neurologic: Nonfocal exam Lymphatic: no cervical lymphadenopathy Results & Data Results & Data ([facility]) Vital Signs (Past 12 Hours) Vital Signs Temp Pulse Resp BP Pulse Ox 06/28/21 07:41 36.8 C 98 H 16 129/77 97 06/27/21 22:57 37.6 C H 95 H 16 126/76 93 Critical Care Results & Data Vital Signs (Past 12 Hours) Vital Signs Temp Pulse Resp BP Pulse Ox 06/28/21 07:41 36.8 C 98 H 16 129/77 97 06/27/21 22:57 37.6 C H 95 H 16 126/76 93 Lab & Micro Results (Past 24 Hours) RBC 3.68 M/uL (4.2-5.4) L 06/28/21 WBC 11.43 K/uL (4.8-10.8) H 06/28/21 Hgb 11.8 g/dL (12.0-16.0) L 06/28/21 Hct 34.2 % (37-47) L 06/28/21 MCV 92.9 fL (80-100) 06/28/21 MCH 32.1 pg (25-34) 06/28/21 MCHC 34.5 g/dL (32-36) 06/28/21 RDW Standard Deviation 43.2 fL (36.4-46.3) 06/28/21 RDW Coefficient of Variation 12.7 % (11.5-14.5) 06/28/21 Plt Count 354 K/uL (130-400) 06/28/21 MPV 8.6 fL (7.4-10.4) 06/28/21 Neutrophils (%) (Auto) 68.3 % 06/28/21 Lymphocytes (%) (Auto) 14.6 % 06/28/21 Monocytes # (Auto) 1.22 K/uL (0.11-0.59) H 06/28/21 Eosinophils # (Auto) 0.67 K/uL (0-0.5) H 06/28/21 Immature Granulocyte % (Auto) 0.2 % 06/28/21 Neutrophils # (Auto) 7.81 K/uL (1.4-6.5) H 06/28/21 Lymphocytes # (Auto) 1.67 K/uL (1.2-3.4) 06/28/21 Monocytes # (Auto) 1.22 K/uL (0.11-0.59) H 06/28/21 Eosinophils # (Auto) 0.67 K/uL (0-0.5) H 06/28/21 Basophils # (Auto) 0.04 K/uL (0-0.2) 06/28/21 Immature Granulocyte # (Auto) 0.02 K/uL (0.00-0.02) 06/28/21 Na 139 mmol/L (136-145) 06/28/21 K 3.4 mmol/L (3.5-5.1) L 06/28/21 Cl 106 mmol/L (98-107) 06/28/21 CO2 26 mmol/L (21-32) 06/28/21 Anion Gap 7 (3-11) 06/28/21 BUN 7 mg/dl (6-23) 06/28/21 Creatinine 0.70 mg/dl (0.6-1.2) 06/28/21 Estimated GFR ( Amer) 98.9 ml/min 06/28/21 Estimated GFR (Non-Af Amer) 85.4 ml/min 06/28/21 BUN/Creatinine Ratio 10.0 (10-20) 06/28/21 Glu 120 mg/dl (70-99(Fasting)) H 06/28/21 Ca 8.4 mg/dl (8.5-10.1) L 06/28/21 Calcium Level 8.4 mg/dl (8.5-10.1) L 06/28/21 05:40 06/28/21 Microbiology 06/27/21 13:45 Gram Stain - Final Sputum, Expectorated Sputum Culture - Final 06/27/21 13:03 Fungal Smear - Final Blood Diagnostic Findings (Past 24 Hours) Chest CTA 06/27/21 10:19 CHEST CTA for PULMONARY ARTERIES CT DOSE: 270.91 mGy.cm HISTORY: Atypical chest pain. TECHNIQUE: Multiaxial CT images of the chest were performed following the intravenous administration of contrast to evaluate the pulmonary arteries. Maximal intensity projection images were also obtained. A dose lowering technique was utilized adhering to the principles of ALARA. COMPARISON STUDY: Chest x-ray 06/27/2021 and 01/19/2021. FINDINGS: Limited views of the upper abdomen demonstrate a normal liver, spleen, and visualized adrenal glands. The thyroid gland enhances normally. No pericardial effusion. There is a small right and trace left pleural effusions. Normal esophagus. There is right paratracheal, anterior mediastinal, subcarinal, and right hilar lymphadenopathy. Dominant right hilar lymph node measures 2.4 cm. No left hilar lymphadenopathy. The heart is normal in size. Normal caliber thoracic aorta with no evidence for dissection. Mass effect along the right upper lobe pulmonary arteries due to the right hilar lymphadenopathy. Otherwise, no filling defects within the pulmonary arteries to suggest a pulmonary embolus. No suspicious lytic or blastic osseous lesions. No pneumothorax. There is mild narrowing within the right central bronchi due to the mass effect from the lymphadenopathy. A few bibasilar linear densities consistent with subsegmental atelectasis. Focal round consolidation within the periphery the right upper lobe measuring 4.5 cm. This demonstrates central hypodensity measuring approximately 1.9 cm. Therefore, this may represent a developing cavitary pneumonia, lung abscess, or possibly a mass. There is associated interlobular septal thickening and multiple scattered irregular cavitary nodules within the surrounding right upper lobe.. Dominant satellite nodule on image 221 measures 7 mm. There are a few additional subcentimeter scattered irregular nodules within the lungs with the dominant nodule within the left upper lobe on image 223 measuring 6 mm. Some of these demonstrate small groundglass halos. IMPRESSION: 1. No evidence for pulmonary embolus. 2. A 4.5 cm focal opacity within the periphery of the right upper lobe which corresponds to the chest x-ray abnormality. There is a small focus of central hypodensity. Therefore, this favors a developing cavitary pneumonia or lung absc ess. This could be due to a bacterial pneumonia, fungal pneumonia, or possibly tuberculosis. Scattered pulmonary nodules and interlobular septal thickening within the right upper lobe may represent additional infectious change. 3. There is bulky right hilar and mediastinal lymphadenopathy which may be reactive. However, the right upper lobe focal opacity and lymphadenopathy could also be due to a neoplastic process with possibly lymphangitic spread given the interlobular septal thickening within the right upper lobe. Therefore, pulmonary consultation recommended. 4. Additional findings as described above. ACT 112: Negative or not required by law. Electronically signed by: Clemente Goff M.D. 06/27/2021 11:55 AM I & O Totals 24 Hours 06/27/21 06/28/21 06/29/21 06:59 06:59 06:59 Intake Total 2325.000 / 2325.000 Balance 2325.000 / 2325.000 Cumulative 06/27/21 08:38 thru 06/28/21 07:59 Intake Total 2325.000 Balance 2325.000 RT Ventilator Mngmt (Last Documented) Ventilator Ordered Settings Respiratory Rate 16 06/28/21 07:41 Ventilator - PT Measurements Respiratory Rate 16 PG Care Time/CCT Total # of Minutes Spent Total Time Spent with Patient: Total time spent is greater than 50% in coordination of care (as documented) at patient's floor/unit and/or counseling patient: Coding Level of Care Code 22208 Initial Inpt Care Lvl [address] scan of lung R91.8 Mediastinal adenopathy R59.0
[2021-06-28 11:03] LABS: INR 1.1 (0.9-1.1); Prothrombin Time 11.3 Seconds (9.0-12.0)
--- NOTE | 2021-06-28 11:20 | Electrocardiogram Report ---
Test Reason : Blood Pressure : / mmHG Vent. Rate : 084 BPM Atrial Rate : 084 BPM P-R Int : 150 ms QRS Dur : 080 ms QT Int : 372 ms P-R-T Axes : 052 030 043 degrees QTc Int : 439 ms Normal sinus rhythm Normal ECG When compared with ECG of 27-JUN-2021 08:54, (unconfirmed) No significant change was found Confirmed by El Perez ([id number]) on 06/28/2021 11:20:38 AM Referred By: REFERRED SELF Confirmed By:El Perez
[2021-06-28] MEDS ORDERED: GADOBUTROL 7.5ML VIAL IV ONE (11:36)
--- NOTE | 2021-06-28 11:57 | Magnetic Resonance Report ---
MRI OF THE BRAIN COMBO CLINICAL HISTORY: Lung cancer. COMPARISON STUDY: CT of the brain dated 08/15/2019. TECHNIQUE: MRI of the brain was performed utilizing various T1 and T2-weighted sequences in the axial , sagittal, and coronal planes. Contrast-enhanced sequences were acquired following the administratio n of 6.5 cc of Gadavist. FINDINGS: Brain parenchyma: A large focus of left frontal encephalomalacia is unchanged and consistent with a r emote insult. There is mild age-related involutional change. There is no hemorrhage or mass effect. T here is no restricted diffusion typical for acute ischemia. No enhancing mass lesion is identified on the postcontrast images. Lees-white matter differentiation is preserved. No extra-axial fluid collec tion is seen. The cerebellar tonsils are normal in configuration. Ventricles, sulci, and cisterns: Prominent secondary to involutional change. Pituitary and sella: Unremarkable. Intracranial vasculature: Normal flow voids are maintained at the skull base. Orbits: The bony orbits are grossly intact. Orbital contents are normal in appearance. Sinuses and mastoids: Clear. Calvarium: Unremarkable. Cervical cord: Partially visualized cervical spinal cord is normal in morphology and signal intensity . IMPRESSION: 1. No acute intracranial abnormality is identified. 2. Specifically, there is no MRI evidence of intracranial metastatic disease. ACT 112: Negative or not required by law. Electronically signed by: Geo Iqbal M.D. 06/28/2021 11:55 AM
[2021-06-28] MEDS: ACETAMINOPHEN 325 MG TAB PO PRN (13:57)
--- NOTE | 2021-06-28 18:03 | Hospitalist Progress Note ---
Date of Service June 28, 2021 Assessment & Plan (1) Cavitary lung disease: (2) Hypertension: (3) Dyslipidemia: (4) GERD (gastroesophageal reflux disease): Plan: Abnormal CT scan of lung: Mediastinal adenopathy: CT chest showed a 4.5 cm focal opacity within the periphery of the right upper lobe. There is a small focus of central hypodensity this favors a developing cavitary pneumonia or lung abscess. Scattered pulmonary nodules and interlobular septal thickening within the right upper lobe may represent additional infectious change Procalcitonin negative Sputum cx and blood cx no growth Pulm on board Plan for bronchoscopy and endobronchial ultrasound with transbronchial needle aspiration of mediastinal and hilar lymph nodes. Coccidiomycosis serologiessent- pending IV abx discontinued since there is no evidence of bacterial infection MRI Brain showed no acute intracranial abnormality. No evidence of intracranial metastatic disease. NPO after midnight Continue monitor closely HTN- stable, continue norvasc HLD- continue crestor RLS- continue gabapentin 500 hs. Does not take pamelor or trazodone anymore. GERD- continue pepcid. Code status- full code DVT prophylaxis- sc lovenox (Will hold in am for possible bronch in am ) Admission and Anticipated Discharge Date Admission Date: June 27, 2021 Subjective Pt was seen and examined for follow up pleuritic chest pain Lying in bed with no acute distress. Pt said that she feels ok She said that she has a hard time to bring her phlegm up Denies any chest pain, palpitation, dizziness and SOB Review of Systems Review of Systems: All systems reviewed & are unremarkable except as noted in Subjective Physical Exam Physical Exam: General- No acute distress Head- atraumatic Eyes- PERRL, EOMI, ENT- oropharynx clear Neck- supple, no JVD Lungs- clear to auscultation Heart- regular rhythm; no murmur Abdomen- normal bowel sounds, soft, nontender Extremities- no calf tenderness Neuro- alert, oriented x 3; PERRL, EOMI; no facial palsy; no dysarthria Skin- warm & dry Results & Data Results & Data ([facility]) Vital Signs (Past 12 Hours) Vital Signs Temp Pulse Resp BP Pulse Ox 06/28/21 15:59 37.0 C 99 H 16 113/73 94 06/28/21 07:41 36.8 C 98 H 16 129/77 97
[2021-06-28] MEDS: amLODIPine BESYLATE 5 MG TAB PO SCH (19:48)
[2021-06-28] MEDS: GABAPENTIN 300 MG CAP PO SCH (19:48)
[2021-06-28] MEDS: GABAPENTIN 100 MG CAP PO SCH (19:48)
[2021-06-29] MEDS: ROSUVASTATIN CALCIUM 20 MG TAB PO SCH (07:42)
[2021-06-29] MEDS: FAMOTIDINE 10 MG TABLET PO SCH (07:43)
--- NOTE | 2021-06-29 08:06 | Anesthesiology Consultation ---
Date of Service June 29, 2021 Assessment & Plan (1) Encounter for pre-operative examination: Chart Review Chart Review: manager entry initiated History Surgery Operation Date: 06/29/21 09:10 Proposed Procedures p Bronchoscopy Respiratory - Pete Rock MD s Endobronchial Ultrasound - Pete Rock MD Height/Weight Height: 5 ft 4 in Weight: 63.049 kg Allergies Allergy/AdvReac Type Severity Reaction Status Date / Time morphine AdvReac Severe SEVERE Verified 06/27/21 15:31 SEDATION Medications Home Medications Medication Instructions Recorded Confirmed Last Taken multivitamin 1 tab PO QAM 08/15/19 06/27/21 06/27/21 nortriptyline 10 mg capsule 10 mg PO HS 08/15/19 06/27/21 01/18/21 vitamin B complex 1 tab PO QAM 08/15/19 06/27/21 06/27/21 cholecalciferol (vitamin D3) 1,250 50,000 mcg PO QAM 02/06/20 06/27/21 06/27/21 mcg (50,000 unit) tablet famotidine 10 mg tablet (Pepcid AC) 10 mg PO DAILY 02/06/20 06/27/21 06/27/21 rosuvastatin 20 mg tablet (Crestor) 20 mg PO DAILY 02/06/20 06/27/21 06/27/21 amlodipine 2.5 mg tablet 2.5 mg PO HS 01/19/21 06/27/21 01/18/21 gabapentin 100 mg capsule 200 mg PO HS 01/19/21 06/27/21 01/18/21 gabapentin 300 mg capsule 300 mg PO HS 01/19/21 06/27/21 01/18/21 Active Medications Generic Name Dose Route Start Last Admin Trade Name Freq PRN Reason Stop Dose Admin Acetaminophen 650 mg 06/27/21 13:10 06/28/21 13:57 Acetaminophen 325 Mg Tab PO 07/27/21 13:09 650 mg Q4 PRN Administration pain Amlodipine Besylate 2.5 mg 06/27/21 21:00 06/28/21 19:48 Amlodipine Besylate 5 Mg Tab PO 07/27/21 20:59 2.5 mg HS MOHIT Administration Enoxaparin Sodium 40 mg 06/27/21 16:00 06/27/21 16:08 Enoxaparin Inj 40 Mg/0.4 Ml Syr SQ 07/27/21 15:59 40 mg Q24H MOHIT Administration Famotidine 10 mg 06/28/21 09:00 06/29/21 07:43 Famotidine 10 Mg Tablet PO 07/28/21 08:59 Not Given DAILY MOHIT Gabapentin 300 mg 06/27/21 21:00 06/28/21 19:48 Gabapentin 300 Mg Cap PO 07/27/21 20:59 300 mg HS MOHIT Administration Gabapentin 200 mg 06/27/21 21:00 06/28/21 19:48 Gabapentin 100 Mg Cap PO 07/27/21 20:59 200 mg HS MOHIT Administration Rosuvastatin Calcium 20 mg 06/28/21 09:00 06/29/21 07:42 Rosuvastatin Calcium 20 Mg Tab PO 07/28/21 08:59 Not Given DAILY MOHIT Past Medical History Medical History (Updated 06/29/21 @ 08:05 by Yogi Dye DO) Dyslipidemia Hypertension Social History Smoking Status: Never smoker Hx Alcohol Use: Yes Alcohol type: beer and wine alcohol intake frequency: holidays/special occasions only Hx Substance Use: No substance use type: does not use Physical Exam Vital Signs Last Vital Signs Temp 98.8 F 06/29/21 07:38 Pulse 96 H 06/29/21 07:38 Resp 18 06/29/21 07:38 BP 124/71 06/29/21 07:38 Pulse Ox 93 06/29/21 07:38 Testing Laboratory Results 06/28/21 05:40 06/28/21 05:40 PT 11.3 Seconds (9.0-12.0) 06/28/21 10:44 INR 1.1 (0.9-1.1) 06/28/21 10:44 Urine Color Dark Yellow 06/27/21 10:03 Urine Appearance Clear (Clear) 06/27/21 10:03 Urine pH 6.5 (4.5-7.5) 06/27/21 10:03 Ur Specific Kincaid 1.018 (1.000-1.030) 06/27/21 10:03 Urine Protein Trace (Negative) H 06/27/21 10:03 Urine Glucose (UA) Negative (Negative) 06/27/21 10:03 Urine Ketones 1+ (Negative) H 06/27/21 10:03 Urine Nitrite Negative (Negative) 06/27/21 10:03 Ur Leukocyte Esterase 1+ (Negative) H 06/27/21 10:03 Urine WBC (Auto) 5-10 /hpf (0-5) H 06/27/21 10:03 Urine RBC (Auto) 5-10 /hpf (0-4) H 06/27/21 10:03 U Hyaline Cast (Auto) 1-5 /lpf (0-5) 06/27/21 10:03 U Epithel Cells (Auto) >30 /lpf (0-5) H 06/27/21 10:03 Urine Bacteria (Auto) Negative (Negative) 06/27/21 10:03 06/27/21 13:03 Aerobic Blood Culture - Preliminary Blood No growth in Aerobic bottle after 24 hours. Anaerobic Blood Culture - Preliminary No growth in Anaerobic bottle after 24 hours. 06/27/21 13:12 Aerobic Blood Culture - Preliminary Blood No growth in Aerobic bottle after 24 hours. Anaerobic Blood Culture - Preliminary No growth in Anaerobic bottle after 24 hours. 06/27/21 13:45 Gram Stain - Final Sputum, Expectorated Sputum Culture - Final 06/27/21 13:03 Fungal Smear - Final Blood Electrocardiogram Date: 06/28/21 Normal sinus rhythm, rate 84 bpm Normal ECG When compared with ECG of 27-JUN-2021 08:54, (unconfirmed) No significant change was found Confirmed by El Perez ([id number]) on 06/28/2021 11:20:38 AM Chest X-Ray Date: 06/27/21 IMPRESSION: Interval development of a focal peripheral airspace opacity within the right upper lobe which likely represents a pneumonia given the short interval change. There is also fullness within the right hilum suggestive of associated lymphadenopathy. One-month chest x-ray follow-up recommended to ensure resolution.
--- NOTE | 2021-06-29 08:17 | Pulmonology Progress Note ---
Date of Service June 29, 2021 Assessment & Plan (1) Abnormal CT scan of lung: (2) Mediastinal adenopathy: (3) Multiple pulmonary nodules: (4) Pleural effusion: Plan: Impression: 75-year-old female non-smoker with prior history of PMR on chronic prednisone up until about 3 months ago presenting with spiculated right upper lobe lesion with what appears to be extensive lymphangitic involvement as well as hilar and mediastinal adenopathy. CT chest 06/27/2021 personally reviewed: Interlobular thickening appreciated in the right upper lobe 5 cm right upper lobe mass with likely central area of necrosis Multiple pulmonary nodules bilaterally Small right-sided pleural effusion Mediastinal lymphadenopathy --Right upper lobe mass with mediastinal lymphadenopathy and multiple pulmonary nodules Patient is a lifetime non-smoker, positive night sweats, right-sided pleuritic chest pain Possibility of malignancy is still there Organizing pneumonia can present this way but again mediastinal lymphadenopathy is very atypical Atypical infections like histoplasmosis, coccidiomycosis in the differential Absolute eosinophil count 670 on 06/25/2021 History of travel to [place] as well as [place] for 2 months starting March. Beta D glucan as well as Coccidioides antibodies has been ordered Was on steroids for PMR till March 2021 Follow-up IgE, histoplasma antibody, coccidioidal antibody Aspergillus IgE and IgG --Pleural effusion Too small for any intervention Plan: For EBUS with transbronchial biopsies today in the OR. Risks and benefits of the procedure explained to the patient in depth. All question queries were answered in depth Consent signed, witnessed and put in the chart Please note the above document was generated using voice recognition software. It may contain grammatical, syntax or spelling errors.Any formal questions or concerns about the content, text or information contained within the body of this dictation should be directly addressed to the provider for clarification. Admission and Anticipated Discharge Date Admission Date: June 27, 2021 Subjective Patient seen and examined at bedside. No acute distress, no adverse events overnight Denies any headache Does complain of mild right-sided chest pain which is decreasing amount after coming to the hospital Denies any night sweats No cough No shortness of breath. Review of Systems Review of Systems: All systems reviewed & are unremarkable except as noted in Subjective Physical Exam 2 Physical Exam: Constitutional: No acute distress HEENT: EOMI, PERRLA Respiratory system: Good air entry bilaterally, no wheeze, no rhonchi, mild crackles bilaterally anterior and posterior CVS: S1-S2 positive, no murmurs or gallops Abdomen: Soft, nontender, nondistended, positive bowel sounds x4 Extremities: +2 pulses bilaterally radialis/ dorsalis pedis, no cyanosis, no edema, no rash Neuro: Awake alert oriented x3 Psych: Normal mood and affect G/U: No Nava Skin: no rashes, warm and dry Lymphatic: no cervical or axillary lymphadenopathy Results & Data Results & Data ([facility]) Vital Signs (Past 12 Hours) Vital Signs Temp Pulse Resp BP Pulse Ox 06/29/21 07:38 37.1 C 96 H 18 124/71 93 06/28/21 22:44 37.4 C 90 16 121/68 94 Laboratory Results 06/28/21 05:40 06/28/21 05:40 PG Care Time/CCT Total # of Minutes Spent Total Time Spent with Patient: Total time spent is greater than 50% in coordination of care (as documented) at patient's floor/unit and/or counseling patient: C[place] [address] Subseq Hosp Care Lvl 3 Patient Type Established Diagnoses Abnormal CT scan of lung R91.8 Mediastinal adenopathy R59.0 Multiple pulmonary nodules R91.8 Pleural effusion J90
[2021-06-29] MEDS ORDERED: PROPOFOL IV EMULSION 10 MG/ML 20 ML VIAL IV ONE ×3 (08:28→11:08)
[2021-06-29] MEDS ORDERED: MIDAZOLAM HCL 1 MG/ML 2ML VIAL ONE (08:28)
[2021-06-29] MEDS ORDERED: LIDOCAINE 2% 2 ML VIAL/AMP(20MG/ML) INFIL ONE (08:28)
[2021-06-29] MEDS: POTASSIUM CHLORIDE / WTR 10 MEQ/100 ML PLCT IV SCH ×2 (09:10→13:08)
[2021-06-29] MEDS ORDERED: ePHEDrine sulfate 50 MG/ML AMP IV PRN (09:15)
[2021-06-29] MEDS ORDERED: fentaNYL citrate 100 MCG/2 ML VIAL IV PRN (09:15)
[2021-06-29] MEDS ORDERED: ONDANSETRON INJ 2 MG/ML 2 ML VIAL IV PRN (09:15)
[2021-06-29] MEDS ORDERED: ATROPINE SULFATE 0.1 MG/ML 10ML SYR IV PRN (09:15)
[2021-06-29 10:05] LABS: Hematocrit (blood only) 37.2 % (37-47); Hemoglobin 12.7 g/dL (12.0-16.0); Mean Corpuscular Hemoglobin 31.7 pg (25-34); Mean Corpuscular Hgb Conc 34.1 g/dL (32-36); Mean Corpuscular Volume 92.8 fL (80-100); Mean Platelet Volume 8.3 fL (7.4-10.4); Platelet Count 389 K/uL (130-400); RDW Coefficient of Variation 12.8 % (11.5-14.5); RDW Standard Deviation 43.4 fL (36.4-46.3); Red Blood Count 4.01 M/uL (4.2-5.4); White Blood Count 9.24 K/uL (4.8-10.8)
[2021-06-29 10:27] LABS: BUN Creatinine Ratio 9.2 (10-20); Creatinine Clr Calc Pharmacy 65.6 ml/min; Est GFR (African American) 101.4 ml/min; Est GFR (Non-African American) 87.5 ml/min; Potassium 3.7 mmol/L (3.5-5.1)
[2021-06-29] MEDS ORDERED: LACTATED RINGER'S 1,000 ML IV SCH (10:45)
[2021-06-29] MEDS ORDERED: Nursing to Pharmacy Communication SCH (10:45)
[2021-06-29] MEDS ORDERED: fentaNYL citrate 100 MCG/2 ML VIAL ONE (10:50)
--- NOTE | 2021-06-29 12:23 | Anesthesiology Progress Note ---
Date of Service June 29, 2021 Anesthesia Post Procedure Vital Signs Vital Signs: Temp Pulse Pulse Resp BP Pulse Ox 06/29/21 12:15 69 19 101/57 L 95 06/29/21 12:05 75 22 110/56 L 96 06/29/21 11:55 73 23 97/54 L 91 06/29/21 11:45 97.2 F L 73 26 H 72/43 L 88 L 06/29/21 10:14 99.7 F H 95 H 22 128/65 97 06/29/21 07:38 98.8 F 96 H 18 124/71 93 06/28/21 22:44 99.3 F 90 16 121/68 94 06/28/21 15:59 98.6 F 99 H 16 113/73 94 Pain Intensity Right Chest: Pain Intensity: 3 Transfer of Care Handoff Completed per policy Notes Mental Status: alert / awake / arousable and participated in evaluation Patient Amnestic to Procedure: Yes Nausea / Vomiting: adequately controlled Pain: adequately controlled Airway Patency, RR, SpO2: stable & adequate BP & HR: stable & adequate Hydration State: stable & adequate Anesthetic Complications: no major complications apparent and Pt Satisfied with anesthetic care
--- NOTE | 2021-06-29 12:27 | XRay Report ---
XR chest 1V portable CLINICAL HISTORY: s/p Bronch TECHNIQUE: Single frontal radiograph of the chest was obtained. Comparison: Comparison is made to chest one view 06/27/2021 FINDINGS: No lines and tubes are seen. The cardiomediastinal silhouette is normal. Interval increase in consoli dation in the right upper lobe. Airspace opacity is also seen in the right lower lung. No evidence of pleural effusion or pneumothorax. IMPRESSION: Worsening right upper lobe consolidation which may represent atelectasis, pneumonia, aspiration, and/ or hemorrhage in this post bronchoscopy patient. Airspace opacity is also seen in the right lower conrad g. No evidence of pneumothorax is seen. ACT 112: Negative or not required by law. Electronically signed by: Rolan Grullon M.D. 06/29/2021 12:25 PM
--- NOTE | 2021-06-29 12:44 | Procedure Note ---
Procedure Note: Bronchoscopy Procedure PREOPERATIVE DIAGNOSIS: Right upper lobe pulmonary mass with mediastinal adenopathy POSTOPERATIVE DIAGNOSIS: Right upper lobe pulmonary mass and mediastinal lymphadenopathy, endobronchial narrowing of the right upper and partly right main bronchus PROCEDURE PERFORMED: EBUS and flexible fiberoptic bronchoscopy with bronchoalveolar lavage, endobronchial and transbronchial biopsies COMPLICATIONS: None. INDICATION: Rule out infection/malignancy PROCEDURE: After obtaining an informed consent, the patient was brought to the OR: The patient had appropriate oxygen, blood pressure, heart rate, and respiratory rate monitoring applied and monitored continuously throughout the procedure. Sedation was managed by anesthesiologist. Please refer to their note for documentation There was normal vocal cord motion without masses or lesions. Topical anesthesia with 1% lidocaine was applied to the trachea and michael. The trachea the trachea was angulated posteriorly in the upper one third. Bronchoscope was then advanced through the michael, which was sharp. The scope was then advanced into the right main stem and each segment, subsegement in the right upper lobe, right middle lobe and right lower lobe were visualized. There was minimal amount of clear secretion which was suctioned out. There seem to be minimal endobronchial narrowing of the right main proximally as well as the right upper lobe. Edematous mucosa was appreciated in the right upper lobe especially the apical segment. The bronchoscope was subsequently withdrawn and advanced into the left mainstem. Again, each segment and subsegment was well visualized. No specific masses or other lesions were identified throughout the tracheobronchial tree on the left. No secretions were noted EBUS was introduced Station 4R: 4 passes were made, adequate samples Station 7: 3 passes were made, adequate samples EBUS was withdrawn and flexible bronchoscope was reintroduced The bronchoscope was then wedged in the right upper lobe and bronchoalveolar lavage samples were obtained. 100 ml of saline was instilled and 30 ml of fluid was aspirated back.The bronchoscope was withdrawn and the area was suctioned clear. Multiple endobronchial biopsies were taken of the endobronchial right upper lobe lesion. The bronchoscope was then re-advanced into the right upper lobe apical segment and multiple transbronchial biopsies were taken. Minimal hemorrhage was identified and suctioned clear without difficulty. Cold saline was utilized to achive adequate hemostasis. The bronchoscope was then withdrawn to the mainstem. The area was suctioned clear. The bronchoscope was then withdrawn. The patient tolerated the procedure well without evidence of desaturation or complications. Bronchoalveolar lavage samples were sent for cell count, Gram stain and bacterial culture, AFB culture and smear, fungal culture and smear, galactomannan,flow cytometry and cytology. Transbronchial biopsies were sent for tissue culture (bacteria, AFB and fungal) and pathology. Recommendations: Follow-up chest x-ray Follow-up cytology, micro as well as patho Please note the above document was generated using voice recognition software. It may contain grammatical, syntax or spelling errors.Any formal questions or concerns about the content, text or information contained within the body of this dictation should be directly addressed to the provider for clarification.
[2021-06-29] MEDS: ACETAMINOPHEN 325 MG TAB PO PRN ×2 (13:17→19:20)
[2021-06-29 13:39] LABS: Eosinophil Body Fluid Man 22 %; Fluid Mono/Macrophage 21 %; Lymphocyte Body Fluid Man 10 %; Neutrophil Body Fluid Man 47 %
[2021-06-29] MEDS: guaiFENesin SUGAR FREE 200 MG/10 ML UDC PO SCH ×2 (17:27→22:27)
[2021-06-29] MEDS: amLODIPine BESYLATE 5 MG TAB PO SCH (20:42)
[2021-06-29] MEDS: GABAPENTIN 300 MG CAP PO SCH (20:43)
[2021-06-29] MEDS: GABAPENTIN 100 MG CAP PO SCH (20:43)
--- NOTE | 2021-06-29 20:46 | Hospitalist Progress Note ---
Date of Service June 29, 2021 Assessment & Plan (1) Cavitary lung disease: (2) Hypertension: (3) Dyslipidemia: (4) GERD (gastroesophageal reflux disease): Plan: Abnormal CT scan of lung: Mediastinal adenopathy: CT chest showed a 4.5 cm focal opacity within the periphery of the right upper lobe. There is a small focus of central hypodensity this favors a developing cavitary pneumonia or lung abscess. Scattered pulmonary nodules and interlobular septal thickening within the right upper lobe may represent additional infectious change Procalcitonin negative Sputum cx and blood cx no growth Pulm on board Status post bronchoscopy done today by Dr. Rock Biopsy was done Specimen was sent for cytology and pathology - will follow Case discussed with Pulm that suggested 5 days course of zithromax on discharge MRI Brain showed no acute intracranial abnormality. No evidence of intracranial metastatic disease. Continue monitor closely Continue guaifenessin Will discharge home tomorrow HTN- stable, continue norvasc HLD- continue crestor RLS- continue gabapentin 500 hs. Does not take pamelor or trazodone anymore. GERD- continue pepcid. Code status- full code DVT prophylaxis- sc lovenox on hold ( due to recent Bronch and biopsy) Admission and Anticipated Discharge Date Admission Date: June 27, 2021 Subjective Pt was seen and examined for follow lung cavity on CT Lying in bed with no acute distress with at bedside She bronchoscopy done this morning Her throat is irritated after bronchoscopy Denies any chest pain, palpitation, dizziness and SOB Review of Systems Review of Systems: All systems reviewed & are unremarkable except as noted in Subjective Physical Exam Physical Exam: General- No acute distress Head- atraumatic Eyes- PERRL, EOMI, ENT- oropharynx clear Neck- supple, no JVD Lungs- clear to auscultation Heart- regular rhythm; no murmur Abdomen- normal bowel sounds, soft, nontender Extremities- no calf tenderness Neuro- alert, oriented x 3; PERRL, EOMI; no facial palsy; no dysarthria Skin- warm & dry Results & Data Results & Data ([facility]) Vital Signs (Past 12 Hours) Vital Signs Temp Pulse Pulse Resp BP Pulse Ox 06/29/21 19:14 36.7 C 93 H 16 127/77 95 06/29/21 15:50 36.4 C L 87 16 120/68 94 06/29/21 14:35 36.6 C 94 H 17 108/62 93 06/29/21 13:40 36.7 C 80 16 112/70 94 06/29/21 13:06 36.6 C 77 20 110/71 96 06/29/21 12:40 36.9 C 85 18 109/67 97 06/29/21 12:25 36.5 C 61 23 107/61 91 06/29/21 12:15 69 19 101/57 L 95 06/29/21 12:05 75 22 110/56 L 96 06/29/21 11:55 73 23 97/54 L 91 06/29/21 11:45 36.2 C L 73 26 H 72/43 L 88 L 06/29/21 10:14 37.6 C H 95 H 22 128/65 97
[2021-06-30] MEDS: guaiFENesin SUGAR FREE 200 MG/10 ML UDC PO SCH (04:25)
--- NOTE | 2021-06-30 07:27 | Pulmonology Progress Note ---
Date of Service June 30, 2021 Assessment & Plan (1) Abnormal CT scan of lung: (2) Mediastinal adenopathy: (3) Multiple pulmonary nodules: (4) Pleural effusion: Plan: Impression: 75-year-old female non-smoker with prior history of PMR on chronic prednisone up until about 3 months ago presenting with spiculated right upper lobe lesion with what appears to be extensive lymphangitic involvement as well as hilar and mediastinal adenopathy. CT chest 06/27/2021 personally reviewed: Interlobular thickening appreciated in the right upper lobe 5 cm right upper lobe mass with likely central area of necrosis Multiple pulmonary nodules bilaterally Small right-sided pleural effusion Mediastinal lymphadenopathy --Right upper lobe mass with mediastinal lymphadenopathy and multiple pulmonary nodules Patient is a lifetime non-smoker, positive night sweats, right-sided pleuritic chest pain Possibility of malignancy is still there Organizing pneumonia can present this way but again mediastinal lymphadenopathy is very atypical Atypical infections like histoplasmosis, coccidiomycosis in the differential Absolute eosinophil count 670 on 06/25/2021 History of travel to [place] as well as [place] for 2 months starting March. Beta D glucan as well as Coccidioides antibodies has been ordered Was on steroids for PMR till March 2021 Follow-up IgE, histoplasma antibody, coccidioidal antibody Aspergillus IgE and IgG s/p bronchoscopy 06/29/21, follow-up cytology and pathology --Pleural effusion Too small for any intervention Plan: Chest x-ray from today shows improvement compared to the post bronch x-ray There is expiratory wheezing appreciated on physical exam today. I will give the patient Solu-Medrol 40 mg. Would recommend giving prednisone 40 mg for 2 more days followed by 20 mg for 2 days and then stop Also give the patient albuterol inhaler to be used on an as-needed basis We will start the patient on albuterol neb Guaifenesin-DM [id number] Can resume flutter valve today. Incentive spirometry Case discussed with Dr. Ellington Please note the above document was generated using voice recognition software. It may contain grammatical, syntax or spelling errors.Any formal questions or concerns about the content, text or information contained within the body of this dictation should be directly addressed to the provider for clarification. Admission and Anticipated Discharge Date Admission Date: June 27, 2021 Subjective Patient seen and examined at bedside. No acute distress, no adverse events overnight Patient complains of mild wheezing which she hurts more on the right side when she is exerting Does complain of chest pain which is no significant change since day before yesterday. No headache, no nausea vomiting Patient is coughing but she is not bringing up any phlegm. Review of Systems Review of Systems: All systems reviewed & are unremarkable except as noted in Subjective Physical Exam Physical Exam: Constitutional: No acute distress HEENT: EOMI, PERRLA Respiratory system: Good air entry bilaterally, minimal rhonchi, positive expiratory wheeze, positive crackles bilaterally CVS: S1-S2 positive, no murmurs or gallops Abdomen: Soft, nontender, nondistended, positive bowel sounds x4 Extremities: +2 pulses bilaterally radialis/ dorsalis pedis, no cyanosis, no edema, no rash Neuro: Awake alert oriented x3 Psych: Normal mood and affect G/U: No Nava Skin: no rashes, warm and dry Lymphatic: no cervical or axillary lymphadenopathy Results & Data Results & Data ([facility]) Vital Signs (Past 12 Hours) Vital Signs Temp Pulse Resp BP Pulse Ox 06/30/21 07:13 37.1 C 90 18 109/67 93 06/30/21 02:51 37.6 C H 88 16 115/67 92 06/29/21 22:24 37.4 C 90 16 127/80 95 Laboratory Results 06/29/21 09:56 06/29/21 09:56 PG Care Time/CCT Total # of Minutes Spent Total Time Spent with Patient: Total time spent is greater than 50% in coordination of care (as documented) at patient's floor/unit and/or counseling patient: Coding Level of Care Code 15495 Subseq Hosp Care Lvl [address] scan of lung R91.8 Mediastinal adenopathy R59.0 Multiple pulmonary nodules R91.8 Pleural effusion J90
[2021-06-30] MEDS: ROSUVASTATIN CALCIUM 20 MG TAB PO SCH (08:16)
[2021-06-30] MEDS: FAMOTIDINE 10 MG TABLET PO SCH (08:16)
[2021-06-30] MEDS ORDERED: methylPREDNISolone 40 MG in SYRINGE 0 ML IV SCH (09:00)
--- NOTE | 2021-06-30 09:37 | XRay Report ---
XR chest 1V portable CLINICAL HISTORY: Follow-up right upper lobe consolidation. COMPARISON STUDY: 06/29/2021 TECHNIQUE: 1 view of the chest FINDINGS: Single frontal view of the chest demonstrates the cardiomediastinal silhouette to be within normal li mits. Compared to the previous examination, there has been almost complete resolution of right upper lobe consolidation. This rapid changes most characteristic of resolving atelectasis. The remainder of the lungs are clear of alveolar opacities. There is no evidence for pneumothorax. There is no eviden ce for pleural effusion. There is no evidence for vascular congestion. There is no acute osseous path ology. IMPRESSION: 1. Almost complete resolution of right upper lobe consolidation. This rapid clearing is most characte ristic of resolution of atelectasis. ACT 112: Negative or not required by law. Electronically signed by: Js Caal M.D. 06/30/2021 9:36 AM
[2021-06-30] MEDS: guaiFENesin/DEXTROM SYRUP 200MG/20MG 10ML UDC PO SCH ×2 (09:39→14:24)
[2021-06-30] MEDS ORDERED: ALBUT/IPRATROP 3MG/0.5MG NEB 3 ML VIAL NEB SCH (13:00)
--- NOTE | 2021-06-30 14:52 | Discharge Summary ---
Date of Service June 30, 2021 Admission HPI Per Admitting Provider 75 year old female with h/o HTN, HLD, PMR now off of prednisone since 03/2021, RLS on neurontin, who presented to the ED with right sided pleuritic chest pain since 06/29. Patient was in [place] for 2 months, in a trailer and going around and came back on 06/12. Also was in [place] for couple weeks in the beginning. Had some dizziness and headaches intermittently. Saw PCP on 06/18 for runny nose, dizziness and was prescribed flonase which helped somewhat. But on 06/19, she developed pleuritic chest pain on right side and has been taking tylenol. Also complains of chills, drenching sweats, and bilateral pain for the past week. Denies any skin rash. Some dry cough but she had it in the past too. Had fever of 100.4 F in the morning today. She called her PCP and was instructed to come to the ED. She was with her who does not have any symptoms. Denies any history of weight loss. No exposure to TB contacts. No h/o malignancy. In the ED, afebrile, hemodynamically stable. Saturating well in room air. Not s ick looking. CXR and CT chest reviewed- showed cavitary pneumonia with lymphadenopathy. She was started on ceftriaxone followed by Feliberto/narayan in the ED. Hospitalist service was consulted for further management. Admission Exam Per Admitting Provider General: Lying comfortably in bed, not in distress, on room air HEENT: EOMI, GILSON, MMM Chest: Clear breath sounds bilaterally, no wheezes or crackles CVS: Regular rate and rhythm, normal heart sounds, no murmur Abdomen: Soft, non tender, not distended, normal bowel sounds Neuro: Awake, alert, oriented, conversing well, non focal Extremities: No cyanosis, clubbing or edema Principal Diagnosis (1) Cavitary lung disease: (2) Hypertension: (3) Dyslipidemia: (4) GERD (gastroesophageal reflux disease): Discharge Exam General- No acute distress Head- atraumatic Eyes- PERRL, EOMI, ENT- oropharynx clear Neck- supple, no JVD Lungs- clear to auscultation Heart- regular rhythm; no murmur Abdomen- normal bowel sounds, soft, nontender Extremities- no calf tenderness Neuro- alert, oriented x 3; PERRL, EOMI; no facial palsy; no dysarthria Skin- warm & dry Discharge Data Allergies Allergy/AdvReac Type Severity Reaction Status Date / Time morphine AdvReac Severe SEVERE Verified 06/27/21 15:31 SEDATION Consultations 06/27/21 12:32 ED Decision to Admit Stat 06/27/21 12:34 Consult Pulmonology Routine Procedures Performed Operation Date: 06/29/21 09:10 Actual Procedures p Bronchoscopy, bronchioloalveolar lavage, bronchial brushings, biopsy. - Pete Rock MD s endobronchial ultrasound, - Pete Rock MD Ordered Studies 06/27/21 10:19 CT angio chest PE protocol Stat 06/28/21 10:41 MR brain wo/w con Routine XR chest 1V portable CLINICAL HISTORY: Follow-up right upper lobe consolidation. COMPARISON STUDY: 06/29/2021 TECHNIQUE: 1 view of the chest FINDINGS: Single frontal view of the chest demonstrates the cardiomediastinal silhouette to be within normal limits. Compared to the previous examination, there has been almost complete resolution of right upper lobe consolidation. This rapid changes most characteristic of resolving atelectasis. The remainder of the lungs are clear of alveolar opacities. There is no evidence for pneumothorax. There is no evidence for pleural effusion. There is no evidence for vascular congestion. There is no acute osseous pathology. IMPRESSION: 1. Almost complete resolution of right upper lobe consolidation. This rapid clearing is most characteristic of resolution of atelectasis. ACT 112: Negative or not required by law. Electronically signed by: Js Caal M.D. 06/30/2021 9:36 AM Dictated:06/30/21933 Transcribed: 06/30/21933 XR chest 1V portable CLINICAL HISTORY: s/p Bronch TECHNIQUE: Single frontal radiograph of the chest was obtained. Comparison: Comparison is made to chest one view 06/27/2021 FINDINGS: No lines and tubes are seen. The cardiomediastinal silhouette is normal. Interval increase in consolidation in the right upper lobe. Airspace opacity is also seen in the right lower lung. No evidence of pleural effusion or pneumothorax. IMPRESSION: Worsening right upper lobe consolidation which may represent atelectasis, pneumonia, aspiration, and/or hemorrhage in this post bronchoscopy patient. Airspace opacity is also seen in the right lower lung. No evidence of pneumothorax is seen. ACT 112: Negative or not required by law. Electronically signed by: Rolan Grullon M.D. 06/29/2021 12:25 PM Dictated:06/29/21 1221 Transcribed: 06/29/21 122 MRI OF THE BRAIN COMBO CLINICAL HISTORY: Lung cancer. COMPARISON STUDY: CT of the brain dated 08/15/2019. TECHNIQUE: MRI of the brain was performed utilizing various T1 and T2-weighted sequences in the axial, sagittal, and coronal planes. Contrast-enhanced sequences were acquired following the administration of 6.5 cc of Gadavist. FINDINGS: Brain parenchyma: A large focus of left frontal encephalomalacia is unchanged and consistent with a remote insult. There is mild age-related involutional change. There is no hemorrhage or mass effect. There is no restricted diffusion typical for acute ischemia. No enhancing mass lesion is identified on the postcontrast images. Lees-white matter differentiation is preserved. No extra- axial fluid collection is seen. The cerebellar tonsils are normal in configuration. Ventricles, sulci, and cisterns: Prominent secondary to involutional change. Pituitary and sella: Unremarkable. Intracranial vasculature: Normal flow voids are maintained at the skull base. Orbits: The bony orbits are grossly intact. Orbital contents are normal in appearance. Sinuses and mastoids: Clear. Calvarium: Unremarkable. Cervical cord: Partially visualized cervical spinal cord is normal in morphology and signal intensity. IMPRESSION: 1. No acute intracranial abnormality is identified. 2. Specifically, there is no MRI evidence of intracranial metastatic disease. ACT 112: Negative or not required by law. Electronically signed by: Geo Iqbal M.D. 06/28/2021 11:55 AM Dictated:06/28/21 1151 Transcribed: 06/28/21 115 CHEST CTA for PULMONARY ARTERIES CT DOSE: 270.91 mGy.cm HISTORY: Atypical chest pain. TECHNIQUE: Multiaxial CT images of the chest were performed following the intravenous administration of contrast to evaluate the pulmonary arteries. M aximal intensity projection images were also obtained. A dose lowering technique was utilized adhering to the principles of ALARA. COMPARISON STUDY: Chest x-ray 06/27/2021 and 01/19/2021. FINDINGS: Limited views of the upper abdomen demonstrate a normal liver, spleen, and visualized adrenal glands. The thyroid gland enhances normally. No pericardial effusion. There is a small right and trace left pleural effusions. Normal esophagus. There is right paratracheal, anterior mediastinal, subcarinal, and right hilar lymphadenopathy. Dominant right hilar lymph node measures 2.4 cm. No left hilar lymphadenopathy. The heart is normal in size. Normal caliber thoracic aorta with no evidence for dissection. Mass effect along the right upper lobe pulmonary arteries due to the right hilar lymphadenopathy. Otherwise, no filling defects within the pulmonary arteries to suggest a pulmonary embolus. No suspicious lytic or blastic osseous lesions. No pneumothorax. There is mild narrowing within the right central bronchi due to the mass effect from the lymphadenopathy. A few bibasilar linear densities consistent with subsegmental atelectasis. Focal round consolidation within the periphery the right upper lobe measuring 4.5 cm. This demonstrates central hypodensity measuring approximately 1.9 cm. Therefore, this may represent a developing cavitary pneumonia, lung abscess, or possibly a mass. There is associated interlobular septal thickening and multiple scattered irregular cavitary nodules within the surrounding right upper lobe.. Dominant satellite nodule on image 221 measures 7 mm. There are a few additional subcentimeter scattered irregular nodules within the lungs with the dominant nodule within the left upper lobe on image 223 measuring 6 mm. Some of these demonstrate small groundglass halos. IMPRESSION: 1. No evidence for pulmonary embolus. 2. A 4.5 cm focal opacity within the periphery of the right upper lobe which corresponds to the chest x-ray abnormality. There is a small focus of central hypodensity. Therefore, this favors a developing cavitary pneumonia or lung abscess. This could be due to a bacterial pneumonia, fungal pneumonia, or possibly tuberculosis. Scattered pulmonary nodules and interlobular septal thickening within the right upper lobe may represent additional infectious change. 3. There is bulky right hilar and mediastinal lymphadenopathy which may be r eactive. However, the right upper lobe focal opacity and lymphadenopathy could also be due to a neoplastic process with possibly lymphangitic spread given the interlobular septal thickening within the right upper lobe. Therefore, pulmonary consultation recommended. 4. Additional findings as described above. ACT 112: Negative or not required by law. Electronically signed by: Clemente Goff M.D. 06/27/2021 11:55 AM Dictated:06/27/21 1138 Transcribed: 06/27/218 XR chest 1V portable HISTORY: Atypical Chest Pain COMPARISON: Chest 01/19/2021. FINDINGS: No pneumothorax. Trace right pleural effusion. The heart is normal in size. A few left basilar linear densities consistent with subsegmental atelectasis. Focal peripheral opacity within the right upper lobe which is new from the prior study. This favors a pneumonia given the short interval change. Right hilar prominence suggestive of associated lymphadenopathy. IMPRESSION: Interval development of a focal peripheral airspace opacity within the right upper lobe which likely represents a pneumonia given the short interval change. There is also fullness within the right hilum suggestive of associated lymphadenopathy. One-month chest x-ray follow-up recommended to ensure resolution. ACT 112: Positive. There are findings on this exam that require communication between the performing entity and the patient following Patient Test Result Information Act ([place] Act 112) guidelines. Electronically signed by: Clemente Goff M.D. 06/27/2021 9:58 AM Dictated:06/27/2156 Transcribed: 06/27/2156 Hospital Course (1) Cavitary lung disease: (2) Hypertension: (3) Dyslipidemia: (4) GERD (gastroesophageal reflux disease): Abnormal CT scan of lung: Mediastinal adenopathy: CT chest showed a 4.5 cm focal opacity within the periphery of the right upper lobe. There is a small focus of central hypodensity this favors a developing cavitary pneumonia or lung abscess. Scattered pulmonary nodules and interlobular septal thickening within the right upper lobe may represent additional infectious change Procalcitonin negative Sputum cx and blood cx no growth Pulm on board Status post bronchoscopy done today by Dr. Rock Biopsy was done Specimen was sent for cytology and pathology - Pending Case discussed with Pulm that suggested a short course of prednisone Will hold on abx on discharge since cx negative MRI Brain showed no acute intracranial abnormality. No evidence of intracranial metastatic disease. Solumedrol IV x1 given today for mild wheezing Continue guaifenesin Case discussed with Pulmonary that recommended to discharge on a short course of prednisone Will discharge home today HTN- stable, continue norvasc HLD- continue crestor RLS- continue gabapentin 500 hs. Does not take pamelor or trazodone anymore. GERD- continue pepcid. Code status- full code DVT prophylaxis- sc lovenox on hold ( due to recent Bronch and biopsy) Total Time Total Time Spent Total Time Spent (In Minutes): 35 minutes Discharge Plan Discharge Items Patient Disposition: Home - Self-Care Reason For Visit: PLEURITIC CHEST PAIN Discharge Diagnosis: (1) Cavitary lung disease: (2) Hypertension: (3) Dyslipidemia: (4) GERD (gastroesophageal reflux disease): Activity: Resume your previous activity Non-emergency contact: Primary Care Provider and [facility] Tender Call non-emergency contact if: you have any medication questions and your symptoms worsen Follow-up/Referrals: Jazmin Oakes, PhD [Other] (Date & Time 07/06/2021 9:40 AM Provider Jazmin Oakes, Department Psychology, [facility] ) Jaz Green MD [Primary Care Provider] - (Date & Time 07/07/2021 11:20 AM Provider Jaz Green MD Department General Internal Medicine [facility] ) Diet: Heart Healthy Addtl Attending Provider Instructions: Follow up with your primary care provider within 1 week Follow up with [facility] T[facility] to discuss about the biopsy result Continue short course of prednisone Continue flutter valve and incentive spirometry Seek medical attention if your symptoms worsening Pending Studies at Discharge: Yes Studies:: Biopsy result from the bronchoscopy ( pathology, cytology, fungus) Stand-Alone Forms: My [facility], Smoking Cessation Medications and DC Order Prescriptions: New Robitussin Cough-Chest Regan DM 5-100 mg/5 mL Liquid 10 ml PO Q6H Qty: 237 RF: 0 prednisone 20 mg tablet 20 mg PO UD Qty: 7 RF: 0 albuterol sulfate 90 mcg/actuation HFA aerosol inhaler 2 inh inhalation Q6H PRN (Reason: shortness of breath or wheezing) Qty: 6.7 RF: 0 Continued famotidine [Pepcid AC] 10 mg Tablet 10 mg PO DAILY RF: 0 rosuvastatin [Crestor] 20 mg Tablet 20 mg PO DAILY RF: 0 cholecalciferol (vitamin D3) 1,250 mcg (50,000 unit) Tablet 50,000 mcg PO QAM RF: 0 multivitamin Tablet 1 tab PO QAM RF: 0 nortriptyline 10 mg capsule 10 mg PO HS RF: 0 vitamin B complex Tablet 1 tab PO QAM RF: 0 amlodipine 2.5 mg tablet 2.5 mg PO HS RF: 0 gabapentin 300 mg capsule 300 mg PO HS RF: 0 gabapentin 100 mg capsule 200 mg PO HS RF: 0 No Action azithromycin 500 mg tablet 500 mg PO DAILY 5 Days Qty: 5 RF: 0 Discharge Orders: Discharge Order (Routine); Ordered 06/30/21 Ordered By: Maxim Ellington Admission Data Admit Date/Time: 06/27/21 13:10 Attending Provider: Maxim Ellington Admit Provider: Jb Callahan Primary Care Provider: Jaz Green Other Providers: Jb Callahan ; Sanchez Morales ; Geo Mello ; Arnaldo Downey ; Hunter Bishop ; Pete Rock Other Interventions: Discharge Summary Assessment (RN) Last Done: 06/30/21 14:21
[2021-07-04 15:40] LABS: Asperg Fumig Class 0/1; Asperg Fumig IgE 0.21 kU/L; Aspergillus Flavus Negative (Negative); Aspergillus Niger Negative (Negative); Histoplasma H Band Ab Negative (Negative); Histoplasma M Band Ab Negative (Negative); Immunoglobulin IgE 373 kU/L (<OR=114); Rast Aspergillus fumigatus IgG 19.5 mcg/mL (<2.0)
[2021-07-04 21:49] LABS: Coccidioides Ab, CF 1:32 (<1:2); Coccidioides Ab, ID Positive (Negative); Fungitell (1-3)-B-D-Glucan 33 pg/mL
== END 2021-06-30 16:21 | disposition home or self-care (01) | DRG 166 ==
LOC: ED 08:38 → SUATTDRO 13:10 → 3E 13:10
DX: J85.2 Abscess of lung without pneumonia; B38.2 Pulmonary coccidioidomycosis, unspecified; I10 Essential (primary) hypertension; K21.9 Gastro-esophageal reflux disease without esophagitis; B44.9 Aspergillosis, unspecified; R59.1 Generalized enlarged lymph nodes; J90 Pleural effusion, not elsewhere classified; E78.5 Hyperlipidemia, unspecified; G25.81 Restless legs syndrome; J98.4 Other disorders of lung; Z88.5 Allergy status to narcotic agent

== ENCOUNTER 2024-12-05 20:55 | Observation (INO) ==
[2024-12-05 21:32] LABS: Hematocrit (blood only) 44.6 % (37.0-47.0); Hemoglobin 16.0 g/dl (12.0-16.0); Immature Granulocytes # (auto) 0.04 K/uL (0.01-0.20); Immature Granulocytes % (auto) 0.3 %; Mean Corpuscular Hemoglobin 33.1 pg (25.0-34.0); Mean Corpuscular Volume 92.3 fL (80.0-100.0); Platelet Count 277 K/uL (130-400); RDW Standard Deviation 42.6 fL (36.4-46.3); Red Blood Count 4.83 M/uL (4.20-5.40); White Blood Count 12.96 K/ul (4.8-10.8)
[2024-12-05 21:50] LABS: Alanine Aminotransferase 25 U/L (7-52); Albumin Globulin Ratio 1.4 (0.9-2); Alkaline Phosphatase 110 U/L (34-104); Anion Gap 10 (3-11); Bilirubin,Total 1.3 mg/dl (0.2-1.0); Blood Urea Nitrogen 17 mg/dl (6-23); Calcium 10.8 mg/dl (8.6-10.3); Carbon Dioxide 25 mmol/L (21-32); Chloride 104 mmol/L (98-107); Globulin 3.3 gm/dl (2.5-4.0); Glucose 168 mg/dl (70-99(Fasting)); Lipase 36 U/L (11-82); Potassium 4.8 mmol/L (3.5-5.1); Sodium 139 mmol/L (136-145); Total Protein 7.8 gm/dl (6.0-8.3)
[2024-12-05] MEDS: OPTIRAY 320 100ml IV ONE (22:30)
--- NOTE | 2024-12-05 22:45 | Emergency Department Note ---
History of Present Illness General Chief complaint: GI Assessment Stated complaint: vomiting, fever, abd pain Time Seen by Provider: 12/05/24 22:19 History of Present Illness Maximum Pain Intensity: 7 This is a 79-year-old female presenting to the emergency department from home for evaluation of fever, chills, nausea, vomiting, and abdominal pain. Patient has had some gastritis symptoms for several months, but this seems much worse. Her acute pain began worsening this evening. She is having some discomfort in the small of her back. She feels like she is using the bathroom as normal. No history of abdominal surgery. She has not taken anything [id number] for symptoms. She rates her discomfort a 10. Home Medications Medication Instructions Recorded Confirmed Type vitamin B complex 1 tab PO QAM 08/15/19 12/05/24 History cholecalciferol (vitamin D3) 1,250 50,000 mcg PO QAM 02/06/20 12/05/24 History mcg (50,000 unit) tablet rosuvastatin 20 mg tablet (Crestor) 20 mg PO HS 02/06/20 12/05/24 History magnesium oxide 500 mg capsule 500 mg PO Q2D 11/25/21 12/05/24 History medical Marijuana 1 charlee PO HS 03/12/24 12/05/24 History multivitamin 0.5 tab PO QAM 10/30/24 12/05/24 History propranolol 60 mg capsule,24 60 mg PO QAM 11/07/24 12/05/24 History hr,extended release ubrogepant 50 mg tablet (Ubrelvy) 50 mg PO ONCE PRN migraine 11/15/24 12/05/24 Rx headache 30 days #16 tabs gabapentin 100 mg capsule 200 mg (2 x 100 mg) PO HS 90 days 11/30/24 12/05/24 Rx (Neurontin) #180 caps venlafaxine 150 mg 150 mg PO QAM #90 caps 12/03/24 12/05/24 Rx capsule,extended release 24 hr ferrous sulfate 325 mg (65 mg 325 mg PO Q2D 12/05/24 12/05/24 History iron) tablet (Iron (ferrous sulfate)) Allergies Allergy/AdvReac Type Severity Reaction Status Date / Time morphine AdvReac Severe Severe Verified 12/05/24 23:43 Sedation Past Med/Surg History Problem List (Updated 12/06/24 @ 04:32 by Chuck Norman PA-C) Abnormal CT scan (Acute) Abdominal pain (Acute) Family history of colon cancer Change in bowel habits Sensorineural hearing loss, bilateral Bilateral tinnitus Migraine with aura Anxiety with depression PMR (polymyalgia rheumatica) tx with steroids in 2021; no recent sx CAD (coronary artery disease) 'mild' per 2019 cath; medical mgmt 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; R side affected; no residual Visual disturbance of one eye Exertional shortness of breath no recent episodes per 03/30/24 RN phone interview Pulmonary infiltrate following with pulm; hx of nodules and RUL infiltrate with mediastinal lymphadenopathy; routine imaging; had EBUS (negative for malignancy) 06/2021 Cavitary lung disease Follows with Dr Pranav LO pulm Dyslipidemia Hypertension amlodipine D/C by PCP 03/12/2404/22 possibly causing lightheadedness Medical History Hypertension Dyslipidemia History of cervical fracture C7, as a teenager, has full rom Bilateral tinnitus 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; R side affected; no residual Cavitary lung disease Anxiety with depression PMR (polymyalgia rheumatica) CAD (coronary artery disease) 'mild' per 2019 cath; medical mgmt Rib pain on left side Neck pain had fracture at c7 when a teenager Visual disturbance of one eye Right - had temp artery biopsy Exertional shortness of breath hx of; pt denies any recent episodes Pleural effusion hx - no longer Follows with Dr Pranav LO pulm; trace L pleural effusion (unchanged from previous imaging) seen on 03/20/[address] Multiple pulmonary nodules no longer following with pulm; hx of nodules and RUL infiltrate with mediastinal lymphadenopathy; routine imaging; had EBUS (negative for malignancy) 06/2021 Mediastinal adenopathy following with pulm; hx of nodules and RUL infiltrate with mediastinal lymphadenopathy; routine imaging; had EBUS (negative for malignancy) 06/[address] scan of lung following with pulm; hx of nodules and RUL infiltrate with mediastinal lymphadenopathy; routine imaging; had EBUS (negative for malignancy) 06/2021 GERD (gastroesophageal reflux disease) Surgical History History of amputation of finger left hand, pointer finger- due to wood working accident Hx of biopsy (04/09/24) FINAL DIAGNOSIS Temporal artery, right, biopsy: - No significant inflammation identified (negative for arteritis) History of rectal surgery (2021) for prolapse 2021 Hx of cardiac catheterization (02/06/20) pt denies having a heart cath History of mandibular surgery (1993) Hx of tubal ligation Hx of colonoscopy History of bronchoscopy (06/2021) with EBUS [facility] - no longer follows with Dr Pranav LO pul (last seen ~ 6months ago); has small lesion in right lung-no changes in past 2 ct's Family History Grandmother (Paternal) Alzheimer disease Cancer Colorectal cancer Father Alzheimer disease Cancer Colorectal cancer Coronary heart disease Heart disease Hypertension Sister Breast cancer Grandmother (Maternal) Diabetes Mother Diabetes Denies family history of Rheumatoid arthritis Sudden SIDS (sudden infant syndrome) Ovarian cancer Prostate cancer Deep vein thrombosis Osteoporosis Dyslipidemia Cerebral aneurysm Bipolar disorder Clotting disorder Crohn's disease Dementia Depression Kidney disease Myocardial infarction Osteoarthritis Schizophrenia Congenital kidney disease Gestational diabetes Lung cancer COPD (chronic obstructive pulmonary disease) Pulmonary embolism Lung disease Ulcerative colitis Colonic polyp Stroke Asthma Cystic kidney disease Social History Smoking Status: Never smoker Second Hand Exposure: No; Do You Dip or Chew Tobacco: No; Tobacco Cessation Education Requested by Patient: No Hx Alcohol Use: No Hx Substance Use: Yes Last Used Substance: Days (ago) Last Used Substance Other:: medical marijuana Substance Use Type Other:: Medical MJ Charlee HS to help with sleep Preferred Language: Tam[place] Communication Ability: Effective Visual Impairment: No Limitations [place] Required: No Beliefs That Will Affect Care: None Current Living Situation: Spouse Other Information That Helps Us Care for You: No Feels Safe at Home: Yes Safety Concerns: Feels Safe At This Time Seatbelt Use: always Assistive Devices: Glasses and Hearing Aid - Bilateral Review of Systems A total of 10 systems reviewed and were otherwise negative Physical Exam Vital Signs Vital Signs - 24 hr 12/05/24 21:00 12/05/24 22:45 12/05/24 23:19 Temperature 36.5 C 36.6 C Temperature Source Temporal Artery Scan Oral Pulse Rate 67 67 Pulse Rate [Apical] 66 Pulse Rate from SpO2 Sensor Pulse Rhythm Regular Pulse Strength Normal Respiratory Rate 20 16 Respiratory Effort / Characteristics Non-Labored Spontaneous Respiratory Depth Normal Blood Pressure 133/83 Blood Pressure [Right Arm] 121/71 Blood Pressure Mean 99 Blood Pressure Mean [Right Arm] 87 Blood Pressure Position Sitting Pulse Oximetry 100 100 Oxygen Delivery Method Room Air Room Air Sepsis Recent Fever Within 48 Hours No Sepsis New/Unexplained Change in Mental Status No Sepsis Action Taken by Nursing No Action Required 12/05/24 23:36 12/06/24 01:33 Temperature Temperature Source Pulse Rate 65 75 Pulse Rate [Apical] Pulse Rate from SpO2 Sensor 63 Pulse Rhythm Pulse Strength Respiratory Rate 17 18 Respiratory Effort / Characteristics Respiratory Depth Blood Pressure 121/71 Blood Pressure [Right Arm] Blood Pressure Mean 87 Blood Pressure Mean [Right Arm] Blood Pressure Position Pulse Oximetry 95 99 Oxygen Delivery Method Room Air Room Air Sepsis Recent Fever Within 48 Hours Sepsis New/Unexplained Change in Mental Status Sepsis Action Taken by Nursing VITALS: Vitals are noted on the nurse's note and reviewed by myself. Vital signs stable. GENERAL: Pleasant elderly white female who appears mildly uncomfortable on presentation. HEAD: Normocephalic atraumatic. NECK: Supple without nuchal rigidity. No lymphadenopathy. No thyromegaly. Cervical spine is nontender. HEART: Regular rate and rhythm LUNGS: Clear to auscultation bilaterally without wheezes, rales or rhonchi. No retractions or accessory muscle use. ABDOMEN: Positive normal bowel sounds x 4. Soft, nontender, without masses or organomegaly. No guarding or rebound tenderness. MUSCULOSKELETAL: No muscle atrophy, erythema, or edema noted. Full range of motion in all extremities. Course Administered Medications Lactated Ringer's (Lr) 1,000 mls @ 125 mls/hr IV .Q8H MOHIT Stop: 12/09/24 02:14 Last Admin: 12/06/24 03:20 Dose: 125 mls/hr Documented By: NAW Discontinued Medications Acetaminophen (Ofirmev) 1,000 mg in 100 mls @ 400 mls/hr IV NOW STA Stop: 12/05/24 22:55 Last Infusion: 12/05/24 23:09 Dose: Infused Documented By: Admin: 12/05/24 22:56 Dose: 400 mls/hr Documented By: MICHAEL Sodium Chloride (Nss) 1,000 mls @ 999 mls/hr IV .Q1H1M ONE Stop: 12/06/24 01:17 Last Infusion: 12/06/24 01:37 Dose: Infused Documented By: Admin: 12/06/24 00:30 Dose: 999 mls/hr Documented By: MICHAEL Piperacillin Sod/Tazobactam Sod (Zosyn) 4.5 gm in 100 mls @ 200 mls/hr IV ONE STA; Protocol Stop: 12/06/24 02:47 Last Infusion: 12/06/24 03:55 Dose: Infused Documented By: Admin: 12/06/24 03:20 Dose: 200 mls/hr Documented By: BYRON Ioversol (Optiray 320 100ml) 93 ml IV ONCE ONE Stop: 12/05/24 22:31 Last Admin: 12/05/24 22:30 Dose: 93 ml Documented By: MIKE Ondansetron HCl (Ondansetron Inj 2 Mg/Ml 2 Ml Vial) 4 mg IV NOW STA Stop: 12/05/24 22:42 Last Admin: 12/05/24 22:57 Dose: 4 mg Documented By: MICHAEL Medical Decision Making Differential Diagnosis Differential diagnosis: Etiologies such as biliary colic, cholecystitis, hepatitis, pancreatitis, cardiac disease, pancreatitis, gastritis, peptic ulcer disease, appendicitis, cystitis, diverticulitis, mesenteric ischemia, inflammatory bowel disease, ileus, bowel obstruction, testicular/adnexal torsion, aortic pathology, shingles, as well as others were considered Laboratory Data 12/05/24 21:15 12/05/24 21:15 Lab Results 12/05/24 12/05/24 12/06/24 Range/Units 21:15 22:57 00:11 WBC 12.96 H (4.8-10.8) K/ul RBC 4.83 (4.20-5.40) M/uL Hgb 16.0 (12.0-16.0) g/dl Hct 44.6 (37.0-47.0) % MCV 92.3 (80.0-100.0) fL MCH 33.1 (25.0-34.0) pg MCHC 35.9 (32.0-36.0) g/dL RDW Std Deviation 42.6 (36.4-46.3) fL RDW Coeff of Duran 12.4 (11.5-14.5) % Plt Count 277 (130-400) K/uL MPV 9.8 (9.4-12.4) fL Immature Gran % (Auto) 0.3 % Neut % (Auto) 71.0 % Lymph % (Auto) 22.1 % [place] % (Auto) 6.2 % Eos % (Auto) 0.2 % Baso % (Auto) 0.2 % Neut # (Auto) 9.21 H (1.40-6.50) K/uL Lymph # (Auto) 2.87 (1.20-3.40) K/uL [place] # (Auto) 0.80 H (0.11-0.59) K/uL Eos # (Auto) 0.02 (0.00-0.50) K/uL Baso # (Auto) 0.02 (0.00-0.20) K/uL Immature Gran # (Auto) 0.04 (0.01-0.20) K/uL Sodium 139 (136-145) mmol/L Potassium 4.8 (3.5-5.1) mmol/L Chloride 104 (98-107) mmol/L Carbon Dioxide 25 (21-32) mmol/L Anion Gap 10 (3-11) BUN 17 (6-23) mg/dl Creatinine 0.98 (0.6-1.2) mg/dl Est Cr Clr Drug Dosing Not Reportable eGFR 59.08 BUN/Creatinine Ratio 17.3 (10-20) Glucose 168 H (70-99(Fasting)) mg/dl Calcium 10.8 H (8.6-10.3) mg/dl Total Bilirubin 1.3 H (0.2-1.0) mg/dl AST 29 (13-39) U/L ALT 25 (7-52) U/L Alkaline Phosphatase 110 H (34-104) U/L Troponin I High Sens < 2.3 (0-14) pg/ml Total Protein 7.8 (6.0-8.3) gm/dl Albumin 4.5 (3.4-5.0) gm/dl Globulin 3.3 (2.5-4.0) gm/dl Albumin/Globulin Ratio 1.4 (0.9-2) Lipase 36 (11-82) U/L Urine Color Yellow Urine Appearance Clear (Clear) Urine pH 5.5 (4.5-7.5) Ur Specific [place] > 1.045 H (1.000-1.030) Urine Protein Negative (Negative) Urine Glucose (UA) Negative (Negative) Urine Ketones Trace H (Negative) Urine Blood Negative (Negative) Urine Nitrite Negative (Negative) Urine Bilirubin Negative (Negative) Urine Urobilinogen Negative (Negative) Ur Leukocyte Esterase Negative (Negative) Urine Comment Imaging Data Radiologist's Impression: Abdomen/Pelvis CT 12/05/24 22:03 CR Exam(s): CT ABDOMEN + PELVIS With Contrast IV Amt: 93ml opti 320 EXAM: CT Abdomen and Pelvis With Intravenous Contrast CLINICAL HISTORY: Reason for exam: abd pain. TECHNIQUE: Axial computed tomography images of the abdomen and pelvis with intravenous contrast. CTDI is 13.46 mGy and DLP is 629.66 mGy-cm. Automated exposure control was utilized for the study. A dose lowering technique was utilized adhering to the principles of ALARA. CONTRAST: Patient received 93ml opti 320 of IV contrast COMPARISON: No relevant prior studies available. FINDINGS: Lung bases: Unremarkable. No mass. No consolidation. ABDOMEN: Liver: Unremarkable. No mass. Gallbladder and bile ducts: . No calcified stones. Dilatation of the common bile duct measuring 9 mm the etiology of which is not clearly appreciated on this exam. Pancreas: Unremarkable. No mass. No ductal dilation. Spleen: Unremarkable. No splenomegaly. Adrenals: Unremarkable. No mass. Kidneys and ureters: Unremarkable. No solid mass. No hydronephrosis. Stomach and bowel: Subtle wall thickening and inflammatory change involving the splenic flexure. . PELVIS: Appendix: The appendix is distended and contains hyperdense material likely representing appendicolith. No periappendiceal fluid collections identified on this exam. Bladder: Unremarkable. No mass. Reproductive: Unremarkable as visualized. ABDOMEN and PELVIS: Intraperitoneal space: Unremarkable. No free air. No significant fluid collection. Bones/joints: No acute fracture. No dislocation. Soft tissues: Unremarkable. Vasculature: Unremarkable. No abdominal aortic aneurysm. Lymph nodes: Unremarkable. No enlarged lymph nodes. IMPRESSION: Dilated appendix with out significant inflammatory change but containing an appendicolith. Findings may represent very early acute appendicitis in the appropriate clinical setting Very mild uncomplicated colitis involving the splenic flexure Common bile duct is dilated the etiology of which is not clearly seen on this exam. MRCP may be helpful further evaluation if clinically warranted Communications: Call Doctor Appendicitis Electronically signed by: Fede Padron MD 12/06/24 00:51 AM Gallbladder Ultrasound 12/06/24 01:28 EXAM: US gallbladder CLINICAL HISTORY: Abdominal pain. TECHNIQUE: Ultrasound examination of the right upper quadrant (RUQ) was performed using a high-frequency transducer. Scanning was performed with the patient in the supine position. The following structures were specifically evaluated: COMPARISON: None available. FINDINGS: Liver: Liver size: The liver appears normal in size with homogeneous echotexture. The right lobe spans 13 cm. There is no evidence of focal lesions, cysts, or masses. The hepatic vasculature appears normal. Gallbladder: Gallbladder size: The gallbladder is visualized and appears normal in size and shape. Negative Robertson sign. Wall thickness is 1.4 mm. No gallstones or pericholecystic fluid are noted. There is no evidence of gallbladder wall edema or signs of acute cholecystitis. Biliary Tree: The common bile duct diameter at the head of the pancreas measures 6 mm. The proximal diameter reaches 7.3 mm. There is no evidence of choledocholithiasis or biliary obstruction. Assessment of the pancreas is limited due to overlying bowel gas. The duct measures 3 mm. Right Kidney: The right kidney appears normal in size with preserved corticomedullary differentiation. There is no evidence of hydronephrosis, renal cysts, or masses. Vascularity is normal. IMPRESSION: No evidence of acute pathology or significant abnormalities specific to the RUQ. RECOMMENDATIONS: Clinical correlation with symptoms and further evaluation as indicated. Electronically signed by Manjit Simeon 12-06-2024 03:58 AM MDM Narrative Physical exam and history were performed. Nursing notes, EMR, and Medication List were personally reviewed. No social concerns were identified as barriers to patients care. History was provided by the Patient. Patient appears to have abdominal pain bringing her to the ER. She does not appear toxic on arrival and is without significant tenderness on examination. IV access was established and labs were obtained. Patient was given IV saline, IV Zofran, and IV Tylenol. She was made n.p.o. She was sent to CT scan for imaging of her abdomen and pelvis. An order was placed for continuous cardiac monitoring. The monitor shows a rate of 72 with normal sinus rhythm. Patient's blood work is as above and was reviewed. Patient does have a slightly elevated white count of 12.9. She does not have significant anemia or gross electrolyte imbalance. Transaminases are not diagnostic. Bilirubin slightly elevated at 1.3. Troponin x 1 negative. Urine without distinct evidence of infection. CT scan was independently reviewed by myself and radiology. CT scan is somewhat difficult to interpret as she appears to have both a mildly distended bile duct, as well as possible early appendicitis with appendicolith. Escalation of care was considered, and is felt to be necessary for this patient. Case was discussed with the on-call surgical team, who did agree to evaluate the patient here in the ER. We agreed the patient does not have significant reproducible abdominal pain, and she likely needs further evaluation for the true cause of her symptoms. Case was also discussed with the on-call hospitalist, who agreed to evaluate the patient here in the ER. Please see their dictation for further patient course, plan, and disposition. The chart was completed utilizing [employer] Voice Recognition Software. Grammatical errors, random word insertions, pronoun errors, and incomplete sentences are an occasional consequence of this system due to software limitations, ambient noise, and hardware issues. Any formal questions or concerns about the content, text, or information contained within the body of this dictation should be directly addressed to the provider for clarification. Impression & Plan Abdominal pain, Abnormal CT scan Discharge Plan Visit Data Chief Complaint: GI Assessment Stated Complaint: vomiting, fever, abd pain ED Provider: Felix Hernandez ED Midlevel Provider: Chuck Norman Discharge Problem: Abdominal pain, Abnormal CT scan Patient Disposition: Being Evaluated by Hospitalist Condition: Fair Discharge Instructions Interventions: ED Discharge Assessment Last Done: 12/06/24 03:29
[2024-12-05] MEDS: ACETAMINOPHEN 1,000 MG/100 ML VIAL IV STA (22:56)
[2024-12-05] MEDS: ONDANSETRON INJ 2 MG/ML 2 ML VIAL IV STA (22:57)
[2024-12-06] MEDS: SODIUM CHLORIDE 0.9% 1,000 ML IV ONE (00:30)
[2024-12-06 00:45] LABS: Appearance Urine Clear (Clear); Glucose Urine UA Negative (Negative)
--- NOTE | 2024-12-06 00:52 | CT Scan Report ---
Exam(s): CT ABDOMEN + PELVIS With Contrast IV Amt: 93ml opti 320 EXAM: CT Abdomen and Pelvis With Intravenous Contrast CLINICAL HISTORY: Reason for exam: abd pain. TECHNIQUE: Axial computed tomography images of the abdomen and pelvis with intravenous contrast. CTDI is 13.46 mGy and DLP is 629.66 mGy-cm. Automated exposure control was utilized for the study. A dose lowering technique was utilized adhering to the principles of ALARA. CONTRAST: Patient received 93ml opti 320 of IV contrast COMPARISON: No relevant prior studies available. FINDINGS: Lung bases: Unremarkable. No mass. No consolidation. ABDOMEN: Liver: Unremarkable. No mass. Gallbladder and bile ducts: . No calcified stones. Dilatation of the common bile duct measuring 9 mm the etiology of which is not clearly appreciated on this exam. Pancreas: Unremarkable. No mass. No ductal dilation. Spleen: Unremarkable. No splenomegaly. Adrenals: Unremarkable. No mass. Kidneys and ureters: Unremarkable. No solid mass. No hydronephrosis. Stomach and bowel: Subtle wall thickening and inflammatory change involving the splenic flexure. . PELVIS: Appendix: The appendix is distended and contains hyperdense material likely representing appendicolith. No periappendiceal fluid collections identified on this exam. Bladder: Unremarkable. No mass. Reproductive: Unremarkable as visualized. ABDOMEN and PELVIS: Intraperitoneal space: Unremarkable. No free air. No significant fluid collection. Bones/joints: No acute fracture. No dislocation. Soft tissues: Unremarkable. Vasculature: Unremarkable. No abdominal aortic aneurysm. Lymph nodes: Unremarkable. No enlarged lymph nodes. IMPRESSION: Dilated appendix with out significant inflammatory change but containing an appendicolith. Findings may represent very early acute appendicitis in the appropriate clinical setting Very mild uncomplicated colitis involving the splenic flexure Common bile duct is dilated the etiology of which is not clearly seen on this exam. MRCP may be helpful further evaluation if clinically warranted Communications: Call Doctor Appendicitis Electronically signed by: Fede Padron MD 12/06/24 00:51 AM
--- NOTE | 2024-12-06 01:19 | History & Physical Report ---
Date of Service December 06, 2024 Assessment & Plan (1) Abdominal pain: Plan 79-year-old female PMHx HTN, dyslipidemia, h/o CVA, CAD, PMR, anxiety and depression, migraines, and h/o anemia presenting for abdominal pain "x months" that has worsened on the night MEDICAL ONCOLOGY PHYSICIAN. Her evaluation is significant for mild leukocytosis, elevated bilirubin and alk phos, and imaging findings consistent with appendicitis as well as CBD dilation. Hemodynamically stable at time of admission. #Abdominal pain Ongoing x months, worsening the night MEDICAL ONCOLOGY PHYSICIAN. Suspect 2/2 either appendix or GB etiology per imaging at time of admission. Pain controlled at time of admission. Admits to coughing at night, alleviated with Tums. H/o GERD, not on prescription meds. - CBC leukocytosis 12.96, stable H/H; CMP bilirubin 1.3, alk phos 110; lipase 36 - CBC am - CTAP dilated appendix without significant inflammatory changes but with appendicolith (may be appendicitis), mild uncomplicated colitis involving splenic flexure, CBD dilated - NPO - IVF LR @ 125 mL/hr - Zofran prn N/V - Acetaminophen prn fever/pain, add additional pain meds if worsening pain but overall controlled with acetaminophen - Zosyn IV - RUQ US pending - Gen sx consulted - appreciate input + recs #Hypercalcemia Admits to taking "Tums a lot", ~ 1-2 per day. In setting of normal albumin. Asx. - Ca 10.8, albumin 4.5 - Hold further Tums - Repeat Ca am #EPIFANIO- H/H stable at admission; ferrous sulfate q2d - continue #Neuropathy- Gabapentin - continue #HTN- Propranolol - continue #Dyslipidemia- Rosuvastatin - continue #Migraines- Ubrogepant prn; Stable #Psych- Venlafaxine - continue #H/o CVA- 1993; no residual symptoms #CAD- Catheterization 2019; stable Dispo: Admit, med/sx VTE Prophylaxis: SCDs This document was dictated utilizing [employer]. Please excuse any grammatical errors that may be secondary to use of this software. Admission and Anticipated Discharge Date Admission Date: 12/06/2024 History of Present Illness Chief Complaint: Abd pain Primary Care Provider: Madison Kruse DO 79-year-old female PMHx HTN, dyslipidemia, h/o CVA, CAD, PMR, anxiety and depression, migraines, and h/o anemia presenting for abdominal pain "x months" that has worsened on the night MEDICAL ONCOLOGY PHYSICIAN. Reports that maybe 2 months MEDICAL ONCOLOGY PHYSICIAN she started to notice abdominal pain in her lower abdomen with eating. She describes it as a "less than medium intensity" pain that is aching in nature. She does have a history of rectal prolapse and reports that because of this she often has constipation. However, on the night MEDICAL ONCOLOGY PHYSICIAN she did have some loose stool that was in the setting of recent laxative use. She was sitting on the toilet the night MEDICAL ONCOLOGY PHYSICIAN when she had a very sudden onset of sharp abdominal pain that was a 7-8/10 on the pain scale, described as sharp, and in the same lower abdomen location. She did not have any blood in stool that she noticed. Denies N/V. No F/C but did feel "very cold and had some shakes" at one point. She occasionally has dizziness when going from sitting to standing too quickly and sometimes upon waking in the AM. She admits to utilizing Excedrin and Ubrelvy the night MEDICAL ONCOLOGY PHYSICIAN for migraine. She also takes Tums ~ 1-2 per day before sleep because she has some coughing at night and she states that this helps. Admits to "always having a runny nose... no allergies" and has clear rhinorrhea. States oral allergy meds seem to help alleviate the symptoms. She denies CP, SOB, palpitations, numbness/tingling, new URI symptoms, weakness, syncope, or falls. ED evaluation reveals CBC with leukocytosis 12.96, stable H/H; CMP glucose 168, bili 1.3, alk phos 110; Ca 10.8; lipase 36; UA negative fo infection; CTAP dilated appendix without significant inflammatory changes but with appendicolith (may be appendicitis), mild uncomplicated colitis involving splenic flexure, CBD dilated (MRCP may be helpful); EKG sinus rhythm with PACs @ 65 bpm.; Provided with 1L NSS, zofran 4mg IV, ad acetaminophen 1g IV in ED. Please see Dr. Hall's attestation for adjustments/additions to treatment plan. Allergies Allergy/AdvReac Type Severity Reaction Status Date / Time morphine AdvReac Severe Severe Verified 12/05/24 23:43 Sedation Home Medications Medication Instructions Recorded Confirmed Type vitamin B complex 1 tab PO QAM 08/15/19 12/05/24 History cholecalciferol (vitamin D3) 1,250 50,000 mcg PO QAM 02/06/20 12/05/24 History mcg (50,000 unit) tablet rosuvastatin 20 mg tablet (Crestor) 20 mg PO HS 02/06/20 12/05/24 History magnesium oxide 500 mg capsule 500 mg PO Q2D 11/25/21 12/05/24 History medical Marijuana 1 charlee PO HS 03/12/24 12/05/24 History multivitamin 0.5 tab PO QAM 10/30/24 12/05/24 History propranolol 60 mg capsule,24 60 mg PO QAM 11/07/24 12/05/24 History hr,extended release ubrogepant 50 mg tablet (Ubrelvy) 50 mg PO ONCE PRN migraine 11/15/24 12/05/24 Rx headache 30 days #16 tabs gabapentin 100 mg capsule 200 mg (2 x 100 mg) PO HS 90 days 11/30/24 12/05/24 Rx (Neurontin) #180 caps venlafaxine 150 mg 150 mg PO QAM #90 caps 12/03/24 12/05/24 Rx capsule,extended release 24 hr ferrous sulfate 325 mg (65 mg 325 mg PO Q2D 12/05/24 12/05/24 History iron) tablet (Iron (ferrous sulfate)) Past Med/Surg History Problem List (Updated 12/06/24 @ 04:32 by Chuck Norman PA-C) Abnormal CT scan (Acute) Abdominal pain (Acute) Family history of colon cancer Change in bowel habits Sensorineural hearing loss, bilateral Bilateral tinnitus Migraine with aura Anxiety with depression PMR (polymyalgia rheumatica) tx with steroids in 2021; no recent sx CAD (coronary artery disease) 'mild' per 2019 cath; medical mgmt 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; R side affected; no residual Visual disturbance of one eye Exertional shortness of breath no recent episodes per 03/30/24 RN phone interview Pulmonary infiltrate following with pulm; hx of nodules and RUL infiltrate with mediastinal lymphadenopathy; routine imaging; had EBUS (negative for malignancy) 06/2021 Cavitary lung disease Follows with Dr Pranav AVENDANOG pulm Dyslipidemia Hypertension amlodipine D/C by PCP 12/23/24 2/2 possibly causing lightheadedness Medical History Hypertension Dyslipidemia History of cervical fracture C7, as a teenager, has full rom Bilateral tinnitus History of CVA (cerebrovascular accident) (1993) 04/22 OCP; R side affected; no residual Cavitary lung disease Anxiety with depression PMR (polymyalgia rheumatica) CAD (coronary artery disease) 'mild' per 2020 cath; medical mgmt Rib pain on left side Neck pain had fracture at c7 when a teenager Visual disturbance of one eye Right - had temp artery biopsy Exertional shortness of breath hx of; pt denies any recent episodes Pleural effusion hx - no longer Follows with Dr Pranav LO pulm; trace L pleural effusion (unchanged from previous imaging) seen on 03/20/[address] Multiple pulmonary nodules no longer following with pulm; hx of nodules and RUL infiltrate with mediastinal lymphadenopathy; routine imaging; had EBUS (negative for malignancy) 06/2021 Mediastinal adenopathy following with pulm; hx of nodules and RUL infiltrate with mediastinal lymphadenopathy; routine imaging; had EBUS (negative for malignancy) 06/[address] scan of lung following with pulm; hx of nodules and RUL infiltrate with mediastinal lymphadenopathy; routine imaging; had EBUS (negative for malignancy) 06/2021 GERD (gastroesophageal reflux disease) Surgical History History of amputation of finger left hand, pointer finger- due to wood working accident Hx of biopsy (04/09/24) FINAL DIAGNOSIS Temporal artery, right, biopsy: - No significant inflammation identified (negative for arteritis) History of rectal surgery (2021) for prolapse 2021 Hx of cardiac catheterization (02/06/20) pt denies having a heart cath History of mandibular surgery (1993) Hx of tubal ligation Hx of colonoscopy History of bronchoscopy (06/2021) with EBUS [facility] - no longer follows with Dr Pranav LO pulm (last seen ~ 6months ago); has small lesion in right lung-no changes in past 2 ct's Family History Grandmother (Paternal) Alzheimer disease Cancer Colorectal cancer Father Alzheimer disease Cancer Colorectal cancer Coronary heart disease Heart disease Hypertension Sister Breast cancer Grandmother (Maternal) Diabetes Mother Diabetes Denies family history of Rheumatoid arthritis Sudden SIDS (sudden infant syndrome) Ovarian cancer Prostate cancer Deep vein thrombosis Osteoporosis Dyslipidemia Cerebral aneurysm Bipolar disorder Clotting disorder Crohn's disease Dementia Depression Kidney disease Myocardial infarction Osteoarthritis Schizophrenia Congenital kidney disease Gestational diabetes Lung cancer COPD (chronic obstructive pulmonary disease) Pulmonary embolism Lung disease Ulcerative colitis Colonic polyp Stroke Asthma Cystic kidney disease Social History Smoking Status: Never smoker Second Hand Exposure: No; Do You Dip or Chew Tobacco: No; Tobacco Cessation Education Requested by Patient: No Hx Alcohol Use: No Hx Substance Use: Yes Last Used Substance: Days (ago) Last Used Substance Other:: medical marijuana Substance Use Type Other:: Medical MJ Charlee HS to help with sleep Preferred Language: Greek Communication Ability: Effective Visual Impairment: No Limitations Pipelayer Required: No Beliefs That Will Affect Care: None Current Living Situation: Spouse Other Information That Helps Us Care for You: No Feels Safe at Home: Yes Safety Concerns: Feels Safe At This Time Seatbelt Use: always Assistive Devices: Glasses and Hearing Aid - Bilateral Review of Systems Review of Systems: All systems reviewed & are unremarkable except as noted in Subjective Physical Exam Physical Exam: General: No acute distress Skin: Warm and dry Head: Normocephalic, atraumatic Eyes: PERRL, conjunctivae clear, sclera non-icteric ENT: External ear and ear canal without swelling; nose atraumatic; good dentition, tongue normal appearance, pharynx normal Neck: Supple, no LAD Cardio: RRR, no M/G/R, S1 and S2 normal Resp: No respiratory distress, Lungs CTA in all lobes bilaterally, no wheezes, rales, or rhonchi Abdomen: Soft, symmetric, nontender; no signs of peritonitis; No guarding; Mur phy's negative; McBurney's negative; No masses or hepatosplenomegaly; Bowel sounds normoactive MSK: No deformities; pulses palpable and equal; no edema. Neuro: Awake, alert; Sensation intact bilaterally; CN grossly intact Psych: Appropriate mood and affect; good judgement and insight. Results & Data Results & Data Vital Signs (Past 12 Hours) Vital Signs Temp Pulse Pulse Resp BP BP Pulse Ox 12/05/24 23:19 36.6 C 66 16 121/71 100 12/05/24 22:45 67 12/05/24 21:00 36.5 C 67 20 133/83 100 O2 Del Method 12/05/24 23:19 Room Air 12/05/24 22:45 12/05/24 21:00 Room Air Laboratory Results 12/06/24 12/05/24 12/05/24 00:11 22:57 21:15 WBC 12.96 H RBC 4.83 Hgb 16.0 Hct 44.6 MCV 92.3 MCH 33.1 MCHC 35.9 RDW Std Deviation 42.6 RDW Coeff of Duran 12.4 Plt Count 277 MPV 9.8 Immature Gran % (Auto) 0.3 Neut % (Auto) 71.0 Lymph % (Auto) 22.1 [place] % (Auto) 6.2 Eos % (Auto) 0.2 Baso % (Auto) 0.2 Neut # (Auto) 9.21 H Lymph # (Auto) 2.87 [place] # (Auto) 0.80 H Eos # (Auto) 0.02 Baso # (Auto) 0.02 Immature Gran # (Auto) 0.04 Sodium 139 Potassium 4.8 Chloride 104 Carbon Dioxide 25 Anion Gap 10 BUN 17 Creatinine 0.98 Est Cr Clr Drug Dosing Not Reportable eGFR 59.08 BUN/Creatinine Ratio 17.3 Glucose 168 H Calcium 10.8 H Total Bilirubin 1.3 H AST 29 ALT 25 Alkaline Phosphatase 110 H Troponin I High Sens < 2.3 Total Protein 7.8 Albumin 4.5 Globulin 3.3 Albumin/Globulin Ratio 1.4 Lipase 36 Urine Color Yellow Urine Appearance Clear Urine pH 5.5 Ur Specific [place] > 1.045 H Urine Protein Negative Urine Glucose (UA) Negative Urine Ketones Trace H Urine Blood Negative Urine Nitrite Negative Urine Bilirubin Negative Urine Urobilinogen Negative Ur Leukocyte Esterase Negative Urine Comment Diagnostic Findings Abdomen/Pelvis CT 12/05/24 22:03 CR Exam(s): CT ABDOMEN + PELVIS With Contrast IV Amt: 93ml opti 320 EXAM: CT Abdomen and Pelvis With Intravenous Contrast CLINICAL HISTORY: Reason for exam: abd pain. TECHNIQUE: Axial computed tomography images of the abdomen and pelvis with intravenous contrast. CTDI is 13.46 mGy and DLP is 629.66 mGy-cm. Automated exposure control was utilized for the study. A dose lowering technique was utilized adhering to the principles of ALARA. CONTRAST: Patient received 93ml opti 320 of IV contrast COMPARISON: No relevant prior studies available. FINDINGS: Lung bases: Unremarkable. No mass. No consolidation. ABDOMEN: Liver: Unremarkable. No mass. Gallbladder and bile ducts: . No calcified stones. Dilatation of the common bile duct measuring 9 mm the etiology of which is not clearly appreciated on this exam. Pancreas: Unremarkable. No mass. No ductal dilation. Spleen: Unremarkable. No splenomegaly. Adrenals: Unremarkable. No mass. Kidneys and ureters: Unremarkable. No solid mass. No hydronephrosis. Stomach and bowel: Subtle wall thickening and inflammatory change involving the splenic flexure. . PELVIS: Appendix: The appendix is distended and contains hyperdense material likely representing appendicolith. No periappendiceal fluid collections identified on this exam. Bladder: Unremarkable. No mass. Reproductive: Unremarkable as visualized. ABDOMEN and PELVIS: Intraperitoneal space: Unremarkable. No free air. No significant fluid collection. Bones/joints: No acute fracture. No dislocation. Soft tissues: Unremarkable. Vasculature: Unremarkable. No abdominal aortic aneurysm. Lymph nodes: Unremarkable. No enlarged lymph nodes. IMPRESSION: Dilated appendix with out significant inflammatory change but containing an appendicolith. Findings may represent very early acute appendicitis in the appropriate clinical setting Very mild uncomplicated colitis involving the splenic flexure Common bile duct is dilated the etiology of which is not clearly seen on this exam. MRCP may be helpful further evaluation if clinically warranted Communications: Call Doctor Appendicitis Electronically signed by: Fede Padron MD 12/06/24 00:51 AM Medications Administered 1L NSS Zofran 4mg IV Acetaminophen 1g IV ECG Additional Comments: Sinus rhythm with PACS 65bpm, WA 140, QRS 78, QT/QTc 426/443, PRT 42/9/44 Code Status & VTE Plan Code Status Full Supervising Physician Co-Signing Physician Notes Patient seen and examined, chart reviewed, case discussed with NIKKIE Shultz and I agree with the assessment and plan as above PG Care Time/CCT Total # of Minutes Spent Total Time Spent with Patient: Total time spent is greater than 50% in coordination of care (as documented) at patient's floor/unit and/or counseling patient: Coding Level of Care Code 70335 INT INP/OBS CARE 3/75MIN Diagnoses Abdominal pain R10.9
--- NOTE | 2024-12-06 01:37 | Surgery Consultation ---
Date of Consultation December 06, 2024 Assessment & Plan (1) Abdominal pain: I discussed with the treating clinician the emergency department the patient is being admitted on the hospitalist service. From a surgical perspective we recommend the following: The etiology of her abdominal pain is uncertain. Certainly the patient could have an early appendicitis (she is noted to have an appendicolith on CT scan) but her clinical exam at this time is not consistent with appendicitis and there is no periappendiceal inflammation noted on CT scan. It is uncertain if patient has any biliary cause of her abdominal pain (she does report postprandial pain 20 to 30 minutes after eating meals) and she does have some LFT abnormalities and a slightly dilated common bile duct Due to the findings above we will check a gallbladder ultrasound and repeat laboratories in the morning of 12/06/2024 Will keep the patient apparently n.p.o. I have discussed with the hospital service they are going to place her on antibiotics empirically She should be hydrated IV fluids Analgesics and antiemetics to be provided Will wait the pending items above as they are completed the patient be reevaluated the morning of 12/06/2024 by her dayshift team and see if there is any clinical change and a determination be made if patient requires any surgical intervention Would recommend utilizing only SCDs for DVT prevention, no chemical means until is ascertained whether or not the patient requires any surgical or pr ocedural intervention Supervising Physician Co-Signing Physician Notes Patient seen and examined, labs and imaging reviewed, agree with above. 79-year-old female with 2 months postprandial right lower quadrant abdominal pain, now with worsening lower abdominal pain and back pain over the past 2 days. Prior laparoscopic procedure for rectal prolapse, otherwise no abdominal surgeries. Otherwise relatively healthy. On exam she is afebrile with stable vitals, her abdomen is soft, mildly tender to palpation in the right lower quadrant, no guarding or rebound. WBC [address] scan personally viewed and interpreted and agree with the assessment of a large appendicolith with no evidence of periappendiceal inflammation. Ultrasound and CT scan showed no evidence of biliary etiology except for a mildly dilated common bile duct at 6 mm which could be normal for age. Appendicolith, concern for appendicitis Plan for laparoscopic appendectomy Risk discussed to include but not limited to bleeding, infection, normal appendix, conversion open, demonstrating structures, need for future more extensive surgery, leak, abscess, failure to treat symptoms, and the risk of anesthesia History of Present Illness Reason for Consultation: Abdominal pain History of Present Illness This is a 71-year-old female who presented to the emergency department secondary to abdominal pain. Patient says that she is having ongoing abdominal pain that has been present for approximately 2 months. She says the pain is usually confined to her lower abdomen with some radiation to her back. She also speci fically notes that the pain is usually worse approximately 20 to 30 minutes after eating. She has never had any nausea or vomiting related to this pain and she has not had any fevers, shakes, or chills. She presented to the hospital today because she notes that the pain was markedly worse than what it usually is and was mostly in her right abdomen. She says that she has had prior abdominal surgery in the form of a laparoscopic rectal prolapse repair. She also notes that she had a recent colonoscopy in October of this year that only showed internal hemorrhoids. She says she has had an EGD in the past with esophageal dilatation and says that she does have some current dysphagia where food seems to get stuck in her throat. In addition, the patient does report some ongoing issues with constipation secondary to her rectal prolapse surgery, but she says she typically does not take any agents to help with gastric motility or having bowel movements. The patient says she leads a very active lifestyle without chest pain or shortness of breath related to her activities of daily living. She specifically notes that she can easily walk a mile on a flat surface and can even ride a bicycle 30 miles at a time without any issues. Since arrival to the emergency department patient has had labs and imaging which I independently reviewed. A CT scan of the abdomen pelvis showed the patient had no known gallstones however there was dilatation of the common bile duct to approximately 9 mm. The patient was also noted to have a distended appendix with a likely appendicolith. There was, however, no periappendiceal fluid or significant inflammatory findings around the appendix identified on this exam. The interpreting radiologist could not exclude an early acute appendicitis. Labs including CBC were white blood cell count was elevated 12.9. Hemoglobin and hematocrit as well as a platelet count were normal. Chemistry profile showed sodium and potassium as well as the BUN and creatinine were normal. The patient had slight elevation of her total bilirubin at 1.3 (review of past labs show that her bilirubin typically runs normal). Her AST and ALT were both normal. She also had a slight elevation of her alkaline phosphatase at 110. Urinalysis was not indicative of infection. An EKG showed normal sinus rhythm without changes indicative of acute ischemia. Allergies Allergy/AdvReac Type Severity Reaction Status Date / Time morphine AdvReac Severe Severe Verified 12/05/24 23:43 Sedation Home Medications Medication Instructions Recorded Confirmed Type vitamin B complex 1 tab PO QAM 08/15/19 12/05/24 History cholecalciferol (vitamin D3) 1,250 50,000 mcg PO QAM 02/06/20 12/05/24 History mcg (50,000 unit) tablet rosuvastatin 20 mg tablet (Crestor) 20 mg PO HS 02/06/20 12/05/24 History magnesium oxide 500 mg capsule 500 mg PO Q2D 11/25/21 12/05/24 History medical Marijuana 1 belem PO HS 03/12/24 12/05/24 History multivitamin 0.5 tab PO QAM 10/30/24 12/05/24 History propranolol 60 mg capsule,24 60 mg PO QAM 11/07/24 12/05/24 History hr,extended release ubrogepant 50 mg tablet (Ubrelvy) 50 mg PO ONCE PRN migraine 11/15/24 12/05/24 Rx headache 30 days #16 tabs gabapentin 100 mg capsule 200 mg (2 x 100 mg) PO HS 90 days 11/30/24 12/05/24 Rx (Neurontin) #180 caps venlafaxine 150 mg 150 mg PO QAM #90 caps 12/03/24 12/05/24 Rx capsule,extended release 24 hr ferrous sulfate 325 mg (65 mg 325 mg PO Q2D 12/05/24 12/05/24 History iron) tablet (Iron (ferrous sulfate)) Patient History Medical History Hypertension Dyslipidemia History of cervical fracture C7, as a teenager, has full rom Bilateral tinnitus 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; R side affected; no residual Cavitary lung disease Anxiety with depression PMR (polymyalgia rheumatica) CAD (coronary artery disease) 'mild' per 2020 cath; medical mgmt Rib pain on left side Neck pain had fracture at c7 when a teenager Visual disturbance of one eye Right - had temp artery biopsy Exertional shortness of breath hx of; pt denies any recent episodes Pleural effusion hx - no longer Follows with Dr Pranav LO pulm; trace L pleural effusion (unchanged from previous imaging) seen on 03/20/[address] Multiple pulmonary nodules no longer following with pulm; hx of nodules and RUL infiltrate with mediastinal lymphadenopathy; routine imaging; had EBUS (negative for malignancy) 06/2021 Mediastinal adenopathy following with pulm; hx of nodules and RUL infiltrate with mediastinal lymphadenopathy; routine imaging; had EBUS (negative for malignancy) 06/[address] scan of lung following with pulm; hx of nodules and RUL infiltrate with mediastinal lymphadenopathy; routine imaging; had EBUS (negative for malignancy) 06/2021 GERD (gastroesophageal reflux disease) Surgical History History of amputation of finger left hand, pointer finger- due to wood working accident Hx of biopsy (04/09/24) FINAL DIAGNOSIS Temporal artery, right, biopsy: - No significant inflammation identified (negative for arteritis) History of rectal surgery (2021) for prolapse 2021 Hx of cardiac catheterization (02/06/20) pt denies having a heart cath History of mandibular surgery (1993) Hx of tubal ligation Hx of colonoscopy History of bronchoscopy (06/2021) with EBUS [facility] - no longer follows with Dr Pranav LO pulm (last seen ~ 6months ago); has small lesion in right lung-no changes in past 2 ct's Family History Grandmother (Paternal) Alzheimer disease Cancer Colorectal cancer Father Alzheimer disease Cancer Colorectal cancer Coronary heart disease Heart disease Hypertension Sister Breast cancer Grandmother (Maternal) Diabetes Mother Diabetes Denies family history of Rheumatoid arthritis Sudden SIDS (sudden syndrome) Ovarian cancer Prostate cancer Deep vein thrombosis Osteoporosis Dyslipidemia Cerebral aneurysm Bipolar disorder Clotting disorder Crohn's disease Dementia Depression Kidney disease Myocardial infarction Osteoarthritis Schizophrenia Congenital kidney disease Gestational diabetes Lung cancer COPD (chronic obstructive pulmonary disease) Pulmonary embolism Lung disease Ulcerative colitis Colonic polyp Stroke Asthma Cystic kidney disease Social History Smoking Status: Never smoker Second Hand Exposure: No; Do You Dip or Chew Tobacco: No; Tobacco Cessation Education Requested by Patient: No Hx Alcohol Use: No Hx Substance Use: Yes Last Used Substance: Days (ago) Last Used Substance Other:: medical marijuana Substance Use Type Other:: Medical MJ Belem HS to help with sleep Preferred Language: Chinese Communication Ability: Effective Visual Impairment: No Limitations Wood Grinder Required: No Beliefs That Will Affect Care: None Current Living Situation: Spouse Other Information That Helps Us Care for You: No Feels Safe at Home: Yes Safety Concerns: Feels Safe At This Time Seatbelt Use: always Assistive Devices: Glasses and Hearing Aid - Bilateral Review of Systems Review of Systems: All systems reviewed & are unremarkable except as noted in HPI & below Physical Exam Constitutional: WD/WN, vitals as above Eyes: no conjunctival abnormality ENMT: Ears: no hearing impairment and no external ear abnormality Neck: trachea midline Respiratory: normal respiratory effort; no respiratory distress and no labored breathing Cardiovascular: Rate/Rhythm: regular rate and regular rhythm Gastrointestinal (Abdomen): At the time of my exam the patient's abdomen is noted to be soft without distention, rigidity, rebound tenderness, or guarding. The patient had no pain noted in the right upper quadrant with palpation and Robertson sign was negative. The patient had minimal to no pain in the right lower quadrant with palpation. Musculoskeletal: No calf tenderness Skin: no rashes Neurologic: moves all extremities Psychiatric: A+Ox3, euthymic affect Results & Data Vital Signs (Past 12 Hours) Vital Signs Temp Pulse Pulse Resp BP BP Pulse Ox 12/05/24 23:19 36.6 C 66 16 121/71 100 12/05/24 22:45 67 12/05/24 21:00 36.5 C 67 20 133/83 100 O2 Del Method 12/05/24 23:19 Room Air 12/05/24 22:45 12/05/24 21:00 Room Air PG Care Time/CCT Total # of Minutes Spent Total Time Spent with Patient: Total time spent is greater than 50% in coordination of care (as documented) at patient's floor/unit and/or counseling patient: Coding Level of Care Code 16751 INT INP/OBS CARE 3/75MIN Diagnoses Abdominal pain R10.9
--- NOTE | 2024-12-06 02:47 | XRay Report ---
EXAM: XR chest 1V portable CLINICAL HISTORY: pre-op TECHNIQUE: An X-ray image of the chest was obtained in AP projection. COMPARISON: Prior X-ray of the chest on 06/30/21 FINDINGS: Pulmonary Parenchyma: The lung romero are hyperinflated, reflecting underlying COPD (stable). There is resolution of the previously noted right upper lobe consolidations. There is no evidence of consolidation or collapse. There is no evidence of pleural effusion or pleural thickening. Heart and Mediastinum: The size and shape of the heart are normal. There is no mediastinal widening or masses. No hilar or mediastinal lymphadenopathy is identified. Bony Thorax: The bony thorax appears intact, without fractures or deformities. Soft Tissues: The soft tissues overlying the chest wall are unremarkable. IMPRESSION: Hyperinflated lung romero, reflecting underlying COPD (stable). Resolution of the previously noted right upper lobe consolidations. No evidence of consolidation or collapse. No other interval changes since prior. Electronically signed by Manjit Simeon 12-06-2024 02:46 AM
[2024-12-06] MEDS: LACTATED RINGER'S 1,000 ML IV SCH (03:20)
[2024-12-06] MEDS: PIPERACILLIN/TAZOBACTAM 4.5 GM/100 ML BAG IV STA (03:20)
[2024-12-06] MEDS ORDERED: MELATONIN 3 MG TAB PO PRN (03:28)
[2024-12-06] MEDS ORDERED: ACETAMINOPHEN 500 MG TAB PO PRN (03:28)
[2024-12-06] MEDS ORDERED: POLYETHYLENE (MIRALAX) 17 GM PACK PO PRN (03:28)
[2024-12-06] MEDS ORDERED: ONDANSETRON INJ 2 MG/ML 2 ML VIAL IV PRN ×2 (03:28→10:20)
--- NOTE | 2024-12-06 03:58 | Ultrasound Report ---
EXAM: US gallbladder CLINICAL HISTORY: Abdominal pain. TECHNIQUE: Ultrasound examination of the right upper quadrant (RUQ) was performed using a high-frequency transducer. Scanning was performed with the patient in the supine position. The following structures were specifically evaluated: COMPARISON: None available. FINDINGS: Liver: Liver size: The liver appears normal in size with homogeneous echotexture. The right lobe spans 13 cm. There is no evidence of focal lesions, cysts, or masses. The hepatic vasculature appears normal. Gallbladder: Gallbladder size: The gallbladder is visualized and appears normal in size and shape. Negative Robertson sign. Wall thickness is 1.4 mm. No gallstones or pericholecystic fluid are noted. There is no evidence of gallbladder wall edema or signs of acute cholecystitis. Biliary Tree: The common bile duct diameter at the head of the pancreas measures 6 mm. The proximal diameter reaches 7.3 mm. There is no evidence of choledocholithiasis or biliary obstruction. Assessment of the pancreas is limited due to overlying bowel gas. The duct measures 3 mm. Right Kidney: The right kidney appears normal in size with preserved corticomedullary differentiation. There is no evidence of hydronephrosis, renal cysts, or masses. Vascularity is normal. IMPRESSION: No evidence of acute pathology or significant abnormalities specific to the RUQ. RECOMMENDATIONS: Clinical correlation with symptoms and further evaluation as indicated. Electronically signed by Manjit Simeon 12-06-2024 03:58 AM
[2024-12-06 06:23] LABS: Hematocrit (blood only) 38.7 % (37.0-47.0); Hemoglobin 13.4 g/dl (12.0-16.0); Immature Granulocytes # (auto) 0.06 K/uL (0.01-0.20); Immature Granulocytes % (auto) 0.4 %; Mean Corpuscular Hemoglobin 32.0 pg (25.0-34.0); Mean Corpuscular Volume 92.4 fL (80.0-100.0); Platelet Count 225 K/uL (130-400); RDW Standard Deviation 42.9 fL (36.4-46.3); Red Blood Count 4.19 M/uL (4.20-5.40); White Blood Count 15.10 K/ul (4.8-10.8)
[2024-12-06 06:44] LABS: Alanine Aminotransferase 20.0 U/L (7-52); Albumin Globulin Ratio 1.7 (0.9-2); Alkaline Phosphatase 80.0 U/L (34-104); Anion Gap 8.0 (3-11); Bilirubin,Total 0.9 mg/dl (0.2-1.0); Blood Urea Nitrogen 17.0 mg/dl (6-23); Calcium 8.8 mg/dl (8.6-10.3); Carbon Dioxide 22.0 mmol/L (21-32); Chloride 110.0 mmol/L (98-107); Creatinine Clr Calc Pharmacy 50.9 ml/min; Globulin 2.3 gm/dl (2.5-4.0); Glucose 147.0 mg/dl (70-99(Fasting)); Potassium 4.2 mmol/L (3.5-5.1); Sodium 140.0 mmol/L (136-145); Total Protein 6.2 gm/dl (6.0-8.3)
[2024-12-06 06:56] LABS: Anion Gap 8.0 (3-11); Blood Urea Nitrogen 18.0 mg/dl (6-23); Calcium 8.8 mg/dl (8.6-10.3); Carbon Dioxide 22.0 mmol/L (21-32); Chloride 111.0 mmol/L (98-107); Creatinine Clr Calc Pharmacy 52.2 ml/min; Glucose 148.0 mg/dl (70-99(Fasting)); Potassium 4.1 mmol/L (3.5-5.1); Sodium 141.0 mmol/L (136-145)
[2024-12-06 06:58] LABS: INR 1.0 (0.9-1.1); Partial Thromboplastin Time 22 Seconds (21-31); Prothrombin Time 10.9 Seconds (9.0-12.0)
[2024-12-06] MEDS: PIPERACILLIN/TAZOBACTAM 4.5 GM/100 ML BAG IV SCH (07:39)
[2024-12-06] MEDS: PROPRANOLOL HCL 60 MG LA CAP PO SCH (08:52)
[2024-12-06] MEDS: VENLAFAXINE HCL XR 150 MG CAPXR PO SCH (08:52)
[2024-12-06] MEDS ORDERED: MIDAZOLAM HCL 1 MG/ML 2ML VIAL ONE (09:21)
[2024-12-06] MEDS ORDERED: LIDOCAINE 2% 2 ML VIAL/AMP(20MG/ML) INFIL ONE (09:21)
[2024-12-06] MEDS ORDERED: PROPOFOL IV EMULSION 10 MG/ML 20 ML VIAL IV ONE (09:21)
[2024-12-06] MEDS ORDERED: ROCURONIUM BROMIDE 10 MG/ML 5 ML VIAL IV ONE (09:21)
--- NOTE | 2024-12-06 09:36 | Anesthesiology Consultation ---
Date of Service December 06, 2024 Assessment & Plan Chart Review Chart Review: Acceptable Risk for Surgery Consults Requested none History Surgery Operation Date: 12/06/24 09:45 Proposed Procedures p Robotic Laparoscopic Appendectomy - Live Osorio DO, FACS Height/Weight Height: 5 ft 5 in Weight: 63 kg Allergies Allergy/AdvReac Type Severity Reaction Status Date / Time morphine AdvReac Severe Severe Verified 12/06/24 09:02 Sedation Medications Home Medications Medication Instructions Recorded Confirmed Last Taken vitamin B complex 1 tab PO QAM 08/15/19 12/05/24 11/07/24 cholecalciferol (vitamin D3) 1,250 50,000 mcg PO QAM 02/06/20 12/05/24 11/07/24 mcg (50,000 unit) tablet rosuvastatin 20 mg tablet (Crestor) 20 mg PO HS 02/06/20 12/05/24 11/13/24 magnesium oxide 500 mg capsule 500 mg PO Q2D 11/25/21 12/05/24 11/07/24 medical Marijuana 1 charlee PO HS 03/12/24 12/05/24 11/12/24 multivitamin 0.5 tab PO QAM 10/30/24 12/05/24 11/07/24 propranolol 60 mg capsule,24 60 mg PO QAM 11/07/24 12/05/24 11/13/24 hr,extended release ubrogepant 50 mg tablet (Ubrelvy) 50 mg PO ONCE PRN migraine 11/15/24 12/05/24 Unknown headache 30 days #16 tabs gabapentin 100 mg capsule 200 mg (2 x 100 mg) PO HS 90 days 11/30/24 12/05/24 Unknown (Neurontin) #180 caps venlafaxine 150 mg 150 mg PO QAM #90 caps 12/03/24 12/05/24 Unknown capsule,extended release 24 hr ferrous sulfate 325 mg (65 mg 325 mg PO Q2D 12/05/24 12/05/24 Unknown iron) tablet (Iron (ferrous sulfate)) Active Medications Generic Name Dose Route Start Last Admin Trade Name Freq PRN Reason Stop Dose Admin Lactated Ringer's 1,000 mls @ 125 mls/hr 12/06/24 02:15 12/06/24 03:20 Lr IV 12/09/24 02:14 125 mls/hr .Q8H MOHIT Administration Piperacillin Sod/Tazobactam Sod 4.5 gm in 100 mls @ 25 mls/hr 12/06/24 08:00 12/06/24 07:39 Zosyn IV 12/16/24 07:59 25 mls/hr Q8H MOHIT Administration Protocol Propranolol HCl 60 mg 12/06/24 09:00 12/06/24 08:52 Propranolol Hcl 60 Mg [place] PO 01/05/25 08:59 Not Given QAM MOHIT Venlafaxine HCl 150 mg 12/06/24 09:00 12/06/24 08:52 Venlafaxine Hcl Xr 150 Mg Capxr PO 01/05/25 08:59 Not Given QAM MOHIT NPO Date Last Intake of Fluids: 12/05/24 Time Last Intake of Fluids: 17:00 Date Last Intake of Solids: 12/05/24 Time Last Intake of Solids: 17:30 Past Medical History Medical History Hypertension Dyslipidemia History of cervical fracture C7, as a teenager, has full rom Bilateral tinnitus History of CVA (cerebrovascular accident) (1993) 04/22 OCP; R side affected; no residual Cavitary lung disease Anxiety with depression PMR (polymyalgia rheumatica) CAD (coronary artery disease) 'mild' per 2020 cath; medical mgmt Rib pain on left side Neck pain had fracture at c7 when a teenager Visual disturbance of one eye Right - had temp artery biopsy Exertional shortness of breath hx of; pt denies any recent episodes Pleural effusion hx - no longer Follows with Dr Pranav AVENDANO pulm; trace L pleural effusion (unchanged from previous imaging) seen on 03/20/[address] Multiple pulmonary nodules no longer following with pulm; hx of nodules and RUL infiltrate with mediastinal lymphadenopathy; routine imaging; had EBUS (negative for malignancy) 06/2021 Mediastinal adenopathy following with pulm; hx of nodules and RUL infiltrate with mediastinal lymphadenopathy; routine imaging; had EBUS (negative for malignancy) 06/[address] scan of lung following with pulm; hx of nodules and RUL infiltrate with mediastinal lymphadenopathy; routine imaging; had EBUS (negative for malignancy) 06/2021 GERD (gastroesophageal reflux disease) Past Family History Family History Grandmother (Paternal) Alzheimer disease Cancer Colorectal cancer Father Alzheimer disease Cancer Colorectal cancer Coronary heart disease Heart disease Hypertension Sister Breast cancer Grandmother (Maternal) Diabetes Mother Diabetes Denies family history of Rheumatoid arthritis Sudden SIDS (sudden infant syndrome) Ovarian cancer Prostate cancer Deep vein thrombosis Osteoporosis Dyslipidemia Cerebral aneurysm Bipolar disorder Clotting disorder Crohn's disease Dementia Depression Kidney disease Myocardial infarction Osteoarthritis Schizophrenia Congenital kidney disease Gestational diabetes Lung cancer COPD (chronic obstructive pulmonary disease) Pulmonary embolism Lung disease Ulcerative colitis Colonic polyp Stroke Asthma Cystic kidney disease Past Surgical History Surgical History History of amputation of finger left hand, pointer finger- due to wood working accident Hx of biopsy (04/09/24) FINAL DIAGNOSIS Temporal artery, right, biopsy: - No significant inflammation identified (negative for arteritis) History of rectal surgery (2021) for prolapse 2021 Hx of cardiac catheterization (02/06/20) pt denies having a heart cath History of mandibular surgery (1993) Hx of tubal ligation Hx of colonoscopy History of bronchoscopy (06/2021) with EBUS [facility] - no longer follows with Dr Pranav LO pul (last seen ~ 6months ago); has small lesion in right lung-no changes in past 2 ct's Social History Smoking Status: Never smoker Do You Dip or Chew Tobacco: No Hx Alcohol Use: No Alcohol type: beer alcohol intake frequency: a few times a week Hx Substance Use: Yes substance use type: marijuana Substance Use Type Other:: Medical MJ Charlee HS to help with sleep Last Used Substance: Days (ago) Last Used Substance Other:: medical marijuana Physical Exam Vital Signs Last Vital Signs Temp 37.0 C 12/06/24 08:55 Pulse 77 12/06/24 08:55 Resp 20 12/06/24 08:55 BP 139/68 12/06/24 08:55 Pulse Ox 98 12/06/24 08:55 O2 Del Method Room Air 12/06/24 08:55 Testing Laboratory Results 12/06/24 06:12 12/06/24 06:12 PT 10.9 Seconds (9.0-12.0) 12/06/24 06:13 INR 1.0 (0.9-1.1) 12/06/24 06:13 APTT 22 Seconds (21-31) 12/06/24 06:13 Urine Color Yellow 12/06/24 00:11 Urine Appearance Clear (Clear) 12/06/24 00:11 Urine pH 5.5 (4.5-7.5) 12/06/24 00:11 Ur Specific [place] > 1.045 (1.000-1.030) H 12/06/24 00:11 Urine Protein Negative (Negative) 12/06/24 00:11 Urine Glucose (UA) Negative (Negative) 12/06/24 00:11 Urine Ketones Trace (Negative) H 12/06/24 00:11 Urine Nitrite Negative (Negative) 12/06/24 00:11 Ur Leukocyte Esterase Negative (Negative) 12/06/24 00:11
[2024-12-06] MEDS ORDERED: HYDROmorphone INJ 1 MG/ML SYRINGE IV PRN ×2 (10:20→13:30)
[2024-12-06] MEDS ORDERED: ATROPINE SULFATE 0.1 MG/ML 10ML SYR IV PRN (10:20)
[2024-12-06] MEDS ORDERED: PROMETHAZINE HCL 6.25 MG in SODIUM CHLORIDE 0.9% 50 ML IV PRN (10:20)
[2024-12-06] MEDS: BUPIVACAINE 0.5 % 5 MG/1 ML MPF 30ML VIAL ONE (11:33)
[2024-12-06] MEDS ORDERED: ONDANSETRON INJ 2 MG/ML 2 ML VIAL ONE (11:51)
[2024-12-06] MEDS ORDERED: SUGAMMADEX SODIUM 200 MG/2 ML VIAL IV ONE (11:51)
[2024-12-06] MEDS ORDERED: DEXAMETHASONE SOD INJ 4 MG/ML VIAL ONE (11:51)
--- NOTE | 2024-12-06 11:59 | Operative Report ---
PG Post Operative Report Pre & Post Diagnosis Operation Date: 12/06/24 09:45 Pre-Op Diagnosis: Appendicolith Post-Op Diagnosis: Appendicolith, acute appendicitis I identified the patient and participated in the time-out.: Yes Procedure Operation Date: 12/06/24 09:45 Actual Procedures p Robotic Laparoscopic Appendectomy(Not Applicable) - Live Osorio DO, FACS Surgeon Live Osorio DO, ESP[place] [employer] Operations Superintendent Luana Clark Estimated Blood Loss 5 Findings Consistent with Post-Op Diagnosis Dilated and chronically inflamed appendix with large appendicolith. Good hemostasis Specimens Appendix Anesthesia Type General Complications none Disposition Accompanied Patient To Recovery: No Disposition: Recovery Room Indications 79-year-old female presented with abdominal pain with findings of large appendicolith with no obvious acute appendicitis on CT scan. After discussion of her options, patient elected for surgery. Plan for laparoscopic appendectomy. The risks of the procedure were discussed, all questions were answered, and the patient agreed to proceed with surgery as planned. Description of Procedure The patient was properly identified, consented, and taken to the operating room where she was placed in the supine position. General endotracheal anesthesia was induced. SCDs and a safety belt were placed. Preoperative antibiotics were administered. The patient's abdomen was prepped and draped in the standard sterile fashion. A surgical timeout was performed and all parties were in agreement that this was the correct patient and procedure to be performed and we continued as planned. An incision was made just above the umbilicus and to the left of midline. Veress needle was inserted and saline drop test confirmed entry to the abdomen. The abdomen was insufflated with carbon dioxide which the patient tolerated incident. Veress needle was removed and the abdomen is entered using the Optiview technique and a 5 mm camera. The introducer was removed and the abdomen inspected. No damage from initial trocar placement or Veress needle placement was identified. There were no significant abnormalities to the 4 quadrants of the abdomen. An 8 mm robotic port was placed in the left lower quadrant and a 12 mm robotic port was placed in the right upper quadrant. The patient was placed in Trendelenburg position and rotated towards the left. The robot was then docked and the camera and robotic instruments were inserted. The abdomen was explored. There were some adhesions to the anterior abdominal wall in the right upper quadrant were taken down with the vessel sealer. There was no fluid in the pelvis. The gallbladder appeared healthy. The bowel was swept away from the right lower quadrant. The base of the cecum was grasped and elevated towards the abdominal exposing the base of the appendix. The appendix was dilated and appeared to be moderately inflamed with some acute on chronic inflammation. There was no evidence of perforation. There was a large firm appendicolith within the appendix. A window was created between the mesoappendix and the appendix at its base utilizing a vessel sealer. The mesoappendix was then divided using the vessel sealer. Hemostasis appeared excellent. A white loaded 45 mm robotic stapler was then used to divide the appendix at its base. Again, hemostasis appeared excellent. The appendix was then placed in a laparoscopic bag and removed. This was sent to pathology as specimen. The 12 point report was removed and the fascia was closed with an 0 Vicryl suture utilizing the Adrian-Norman device. The robot was undocked and the remaining ports were removed and the abdomen was allowed to collapse. The wounds were irrigated. The skin was closed with 4-0 Monocryl subcuticular sutures. Dermabond was placed over the incisions. The patient was extubated in the operating room and taken to the PACU where she recovered without apparent incident. All sponge, instrument and needle counts were correct at the conclusion of the procedure. The patient tolerated the procedure well. The physician's paralegal assistant was present and scrubbed for the entirety of the case and was essential in positioning the patient, prepping and draping, retraction and exposure, driving the laparoscope, exchange of the robotic instruments removal of the appendix, closure of the incisions, and placement of the dressings. I attest to the content of the Intraoperative Record and any orders documented therein. Any exceptions are noted below.
[2024-12-06] MEDS ORDERED: HYDROmorphone INJ 0.5 MG/0.5 ML SYR IV PRN (13:30)
--- NOTE | 2024-12-06 13:49 | Hospitalist Progress Note ---
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 Her evaluation is significant for mild leukocytosis, elevated bilirubin and alk phos, and imaging findings consistent with appendicitis as well as CBD dilation. Hemodynamically stable at time of admission. 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 CBC w/ bump in WBC to 15.10; LFTs normalized; stable renal function/electrolytes CTAP: dilated appendix w/o significant inflammatory change but containing appendicolith. very mild uncomplicated colitis involving splenic flexure; CBD dilated. RUQ US: Negative. CBD diameter 7.3mm Surgery consulted --> s/p Lap fermin w/ Dr. Osorio 12/06. On IV Zosyn Diet advanced to regular following surgery. #Hypercalcemia Admits to taking "Tums a lot", ~ 1-2 per day. In setting of normal albumin. Asx. Calcium 10.8 on admission, now WNL at 8.8 Hold tums on discharge. #EPIFANIO- H/H stable at admission; ferrous sulfate q2d - continue #Neuropathy- Gabapentin - continue #HTN- Propranolol - continue #Dyslipidemia- Rosuvastatin - continue #Migraines- Ubrogepant prn; Stable #Psych- Venlafaxine - continue #H/o CVA- 1993; no residual symptoms #CAD- Catheterization 2019; stable Dispo: Admit, med/sx VTE Prophylaxis: SCDs Anticipate discharge home 12/07 in AM. Admission and Anticipated Discharge Date Admission Date: December 06, 2024 Supervising Physician Co-Signing Physician Notes The patient was not seen by me. The chart was reviewed. Case discussed with DARCI Ware. Agree with assessment and plan Eduardo Torres was seen and examined following her surgery today. She reports she is recovering well from her surgery & denied any complaints. Physical Exam Physical Exam: General: NAD, VS as above Resp: normal respiratory effort, Extremities: Moves all extremities, no edema Neuro: A&O x3, Skin: intact, no lesions noted Results & Data Results & Data Vital Signs (Past 12 Hours) Vital Signs Temp Pulse Pulse Resp BP Pulse Ox O2 Del Method 12/06/24 13:05 86 17 108/63 95 Room Air 12/06/24 12:50 36.4 C L 84 18 114/59 L 94 Room Air 12/06/24 12:40 89 20 123/69 96 Room Air 12/06/24 12:30 81 20 127/78 95 Room Air 12/06/24 12:20 83 16 113/67 100 Oxymask 12/06/24 12:11 37.1 C 96 H 13 125/86 97 Oxymask 12/06/24 08:55 37.0 C 77 20 139/68 98 Room Air 12/06/24 07:25 79 12/06/24 06:55 37.1 C 12/06/24 06:03 74 16 150/80 H 95 Room Air 12/06/24 03:21 76 16 147/88 H 96 Room Air 12/06/24 03:00 37.0 C 71 16 147/88 H 96 Room Air O2 Flow Rate 12/06/24 13:05 12/06/24 12:50 12/06/24 12:40 12/06/24 12:30 12/06/24 12:20 4 12/06/24 12:11 8 12/06/24 08:55 12/06/24 07:25 12/06/24 06:55 12/06/24 06:03 12/06/24 03:21 12/06/24 03:00 PG Care Time/CCT Total # of Minutes Spent Total Time Spent with Patient: Total time spent is greater than 50% in coordination of care (as documented) at patient's floor/unit and/or counseling patient: Coding Level of Care Code None Diagnoses Abdominal pain R10.9
--- NOTE | 2024-12-06 15:12 | Anesthesiology Progress Note ---
Date of Service December 06, 2024 Anesthesia Post Procedure Vital Signs Vital Signs: Temp Pulse Pulse Pulse Resp BP BP 12/06/24 14:30 36.8 C 84 16 143/71 H 12/06/24 14:00 36.7 C 78 16 128/70 12/06/24 13:30 36.7 C 84 16 118/60 12/06/24 13:05 86 17 108/63 12/06/24 12:50 36.4 C L 84 18 114/59 L 12/06/24 12:40 89 20 123/69 12/06/24 12:30 81 20 127/78 12/06/24 12:20 83 16 113/67 12/06/24 12:11 37.1 C 96 H 13 125/86 12/06/24 08:55 37.0 C 77 20 139/68 12/06/24 07:25 79 12/06/24 06:55 37.1 C 12/06/24 06:03 74 16 150/80 H 12/06/24 03:21 76 16 147/88 H 12/06/24 03:00 37.0 C 71 16 147/88 H 12/06/24 01:33 75 18 12/05/24 23:36 65 17 121/71 12/05/24 23:19 36.6 C 66 16 121/71 12/05/24 22:45 67 12/05/24 21:00 36.5 C 67 20 133/83 Pulse Ox O2 Del Method O2 Flow Rate 12/06/24 14:30 95 Room Air 12/06/24 14:00 95 Room Air 12/06/24 13:30 96 Room Air 12/06/24 13:05 95 Room Air 12/06/24 12:50 94 Room Air 12/06/24 12:40 96 Room Air 12/06/24 12:30 95 Room Air 12/06/24 12:20 100 Oxymask 4 12/06/24 12:11 97 Oxymask 8 12/06/24 08:55 98 Room Air 12/06/24 07:25 12/06/24 06:55 12/06/24 06:03 95 Room Air 12/06/24 03:21 96 Room Air 12/06/24 03:00 96 Room Air 12/06/24 01:33 99 Room Air 12/05/24 23:36 95 Room Air 12/05/24 23:19 100 Room Air 12/05/24 22:45 12/05/24 21:00 100 Room Air Pain Intensity Abdomen: Pain Intensity: 2 Transfer of Care Handoff Completed per policy Notes Mental Status: alert / awake / arousable and participated in evaluation Patient Amnestic to Procedure: Yes Nausea / Vomiting: adequately controlled Pain: adequately controlled Airway Patency, RR, SpO2: stable & adequate BP & HR: stable & adequate Hydration State: stable & adequate Anesthetic Complications: no major complications apparent
[2024-12-06] MEDS: ROSUVASTATIN CALCIUM 20 MG TAB PO SCH (20:20)
[2024-12-06] MEDS: GABAPENTIN 100 MG CAP PO SCH (20:21)
[2024-12-07 06:20] LABS: Hematocrit (blood only) 34.7 % (37.0-47.0); Hemoglobin 12.1 g/dl (12.0-16.0); Immature Granulocytes # (auto) 0.08 K/uL (0.01-0.20); Immature Granulocytes % (auto) 0.5 %; Mean Corpuscular Hemoglobin 33.3 pg (25.0-34.0); Mean Corpuscular Volume 95.6 fL (80.0-100.0); Platelet Count 191 K/uL (130-400); RDW Standard Deviation 44.9 fL (36.4-46.3); Red Blood Count 3.63 M/uL (4.20-5.40); White Blood Count 16.51 K/ul (4.8-10.8)
[2024-12-07 06:59] LABS: Anion Gap 8.0 (3-11); Blood Urea Nitrogen 11.0 mg/dl (6-23); Calcium 8.4 mg/dl (8.6-10.3); Carbon Dioxide 25.0 mmol/L (21-32); Chloride 109.0 mmol/L (98-107); Creatinine Clr Calc Pharmacy 57.2 ml/min; Glucose 125.0 mg/dl (70-99(Fasting)); Potassium 3.8 mmol/L (3.5-5.1); Sodium 142.0 mmol/L (136-145)
[2024-12-07] MEDS: FERROUS SULFATE 325 MG TAB PO SCH (07:03)
[2024-12-07 07:06] VITALS: BP 134/63; PULSE 75; RESP 14; TEMP 98.1; O2SAT 95
--- NOTE | 2024-12-07 09:54 | Communication Note ---
Date of Service: December 07, 2024 By CMS guidelines, a determination that the admission or continued stay is not medically necessary has been made by a member of the UR committee and a physician for this hospital stay, therefore a Code 44 will be completed and the Inpatient admission will be changed to outpatient.
--- NOTE | 2024-12-07 09:55 | Discharge Summary ---
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 Her evaluation is significant for mild leukocytosis, elevated bilirubin and alk phos, and imaging findings consistent with appendicitis as well as CBD dilation. Hemodynamically stable at time of admission. 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 CBC w/ bump in WBC to 15.10; LFTs normalized; stable renal function/electrolytes CTAP: dilated appendix w/o significant inflammatory change but containing appendicolith. very mild uncomplicated colitis involving splenic flexure; CBD dilated. RUQ US: Negative. CBD diameter 7.3mm Surgery consulted --> s/p Lap efrmin w/ Dr. Osorio 12/06. s/p IV Zosyn Diet advanced to regular following surgery & tolerating well prior to dc Pain regimen on dc: Tylenol 1st line & oxycodone 5mg prn for breakthrough pain. #Hypercalcemia Admits to taking "Tums a lot", ~ 1-2 per day. In setting of normal albumin. Asx. Calcium 10.8 on admission, now WNL at 8.8 Hold tums on discharge. 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 She describes it as a "less than medium intensity" pain that is aching in nature. She does have a history of rectal prolapse and reports that because of this she often has constipation. However, on the night CROSSTIE INSPECTOR she did have some loose stool that was in the setting of recent laxative use. She was sitting on the toilet the night CROSSTIE INSPECTOR when she had a very sudden onset of sharp abdominal pain that was a 7-8/10 on the pain scale, described as sharp, and in the same lower abdomen location. She did not have any blood in stool that she noticed. Denies N/V. No F/C but did feel "very cold and had some shakes" at one point. She occasionally has dizziness when going from sitting to standing too quickly and sometimes upon waking in the AM. She admits to utilizing Excedrin and Ubrelvy the night CROSSTIE INSPECTOR for migraine. She also takes Tums ~ 1-2 per day before sleep because she has some coughing at night and she states that this helps. Admits to "always having a runny nose... no allergies" and has clear rhinorrhea. States oral allergy meds seem to help alleviate the symptoms. She denies CP, SOB, palpitations, numbness/tingling, new URI symptoms, weakness, syncope, or falls. ED evaluation reveals CBC with leukocytosis 12.96, stable H/H; CMP glucose 168, bili 1.3, alk phos 110; Ca 10.8; lipase 36; UA negative fo infection; CTAP dilated appendix without significant inflammatory changes but with appendicolith (may be appendicitis), mild uncomplicated colitis involving splenic flexure, CBD dilated (MRCP may be helpful); EKG sinus rhythm with PACs @ 65 bpm.; Provided with 1L NSS, zofran 4mg IV, ad acetaminophen 1g IV in ED. Please see Dr. Hall's attestation for adjustments/additions to treatment plan. Discharge Exam General: NAD, VS as above Resp: normal respiratory effort Abd: soft, no tenderness to palpation, +BS Extremities: Moves all extremities, no edema Neuro: A&O x3, Skin: intact, no lesions noted Discharge Plan Discharge Items Patient Disposition: Home - Self-Care Reason For Visit: APPENDICITIS VS GB Discharge Diagnosis: laparoscopic appendectomy Condition on Discharge: Fair Activity: Per Instructions section Lifting: No more than 10 pounds Bathing Comment: may shower; no soaking in tubs/pools x 2 weeks Exercise/Sports: Wait until after follow-up appointment Driving/Machine Use: no driving while taking narcotics for pain Non-emergency contact: Primary Care Provider and Surgeon Call non-emergency contact if: you have any medication questions, your pain is not controlled, your pain is worsening, you have a fever, your temperature is above 101.5, your wound has increased redness and your wound has increased drainage Follow-up/Referrals: Live Osorio DO, FACS [Physician] - 12/20/24 11:30 am (please call to schedule follow up in the office in 2 weeks ) Madison Kruse DO [Primary Care Provider] - 12/12/24 1:30 pm Diet: Regular Addtl Attending Provider Instructions: SPECIAL CARE INSTRUCTIONS: * You have skin glue over your incisions called dermabond. you may shower with this on. It will tend to dissolve and fall off within a couple weeks. Do not pick at the skin glue * You may shower 12/07 . NO soaking in pools or baths for 2 weeks * No lifting greater than 10lbs. No strenuous exercise until cleared by surgeon. Light walking is accepted. * No driving while taking narcotic pain medication; wait at least 3 days * No drinking alcohol while taking narcotic pain medication * May use Ibuprofen/Tylenol over the counter for pain as tolerated. Do not exceed 3grams of Tylenol per 24 hours *For breakthrough pain, please use Oxycodone 5mg as needed every 4 hours. *Please use a stool softener or Miralax until your bowel habits return to normal. * Expect some swelling and bruising. * Diet- you may resume your regular diet Call your doctor if: * Temperature above 101 degrees, nausea/vomiting, fever/chills * Pain not relieved by pain medicine ordered * There is increased drainage or redness from any incision * You have any unanswered questions or concerns [phone]. FOLLOW UP VISIT: If not already scheduled, please call the office for a follow-up visit. Office Pending Studies at Discharge: Yes Studies:: surgical pathology Stand-Alone Forms: [employer], Smoking Cessation Medications and DC Order Prescriptions: New oxycodone 5 mg tablet 5 mg PO Q4H PRN (Reason: pain) Qty: 5 0RF Continued gabapentin [Neurontin] 100 mg capsule 200 mg PO HS 90 Days Qty: 180 2RF venlafaxine 150 mg capsule,extended release 24hr 150 mg PO QAM Qty: 90 3RF magnesium oxide 500 mg capsule 500 mg PO Q2D Ubrelvy 50 mg tablet 50 mg PO ONCE MDD 200mg PRN (Reason: migraine headache) 30 Days Qty: 16 3RF Rx Instructions: Take 1 tab at onset of migraine attack; may use up to 200mg in 24 hours medical Marijuana charlee 1 charlee PO HS ubrogepant [Ubrelvy] 50 mg tablet 50 mg PO UD PRN (Reason: migraines) 0RF rosuvastatin [Crestor] 20 mg Tablet 20 mg PO HS cholecalciferol (vitamin D3) 1,250 mcg (50,000 unit) Tablet 50,000 mcg PO QAM vitamin B complex Tablet 1 tab PO QAM multivitamin Tablet 0.5 tab PO QAM propranolol 60 mg capsule,extended release 24 hr 60 mg PO QAM ferrous sulfate [Iron (ferrous sulfate)] 325 mg (65 mg iron) Tablet 325 mg PO Q2D Discharge Orders: Discharge Order (Routine); Ordered 12/07/24 Ordered By: Pattie Jerome Admission Data Admit Date/Time: 12/06/24 01:35 Attending Provider: Bill Ortiz Admit Provider: Huma Hall Primary Care Provider: Madison Kruse Other Providers: Live Osorio; Huma Hall Other Interventions: Discharge Summary Assessment (RN) Last Done: 12/07/24 11:23 Hospital Stay Data Consultations 12/06/24 01:14 Consult General Surgery Stat ED Decision to Admit Stat Procedures Performed Operation Date: 12/06/24 09:45 Actual Procedures p Robotic Laparoscopic Appendectomy(Not Applicable) - Live Osorio DO, FACS Diagnostic Imagining Performed 12/05/24 22:03 CT abd pelvis IV con only Stat 12/06/24 01:28 US GB [US gallbladder] Stat Pending Results Patient Have Any Pending Studies at Discharge: Yes Discharge Instructions Given to Patient (Per Discharging Provider) SPECIAL CARE INSTRUCTIONS: * You have skin glue over your incisions called dermabond. you may shower with this on. It will tend to dissolve and fall off within a couple weeks. Do not pick at the skin glue * You may shower 12/07 . NO soaking in pools or baths for 2 weeks * No lifting greater than 10lbs. No strenuous exercise until cleared by surgeon. Light walking is accepted. * No driving while taking narcotic pain medication; wait at least 3 days * No drinking alcohol while taking narcotic pain medication * May use Ibuprofen/Tylenol over the counter for pain as tolerated. Do not exceed 3grams of Tylenol per 24 hours *For breakthrough pain, please use Oxycodone 5mg as needed every 4 hours. *Please use a stool softener or Miralax until your bowel habits return to normal. * Expect some swelling and bruising. * Diet- you may resume your regular diet Call your doctor if: * Temperature above 101 degrees, nausea/vomiting, fever/chills * Pain not relieved by pain medicine ordered * There is increased drainage or redness from any incision * You have any unanswered questions or concerns [phone]. FOLLOW UP VISIT: If not already scheduled, please call the office for a follow-up visit. Office Supervising Physician Co-Signing Physician Notes The patient was not seen by me. The chart was reviewed. Case discussed with DARCI Ware. Agree with assessment and plan Total Time Total Time Spent Total Time Spent (In Minutes): 45 Total Time Includes: Examination of the Patient, Discharge Planning, Medication Reconciliation and Other Coding Level of Care Code 59584 INP/OBS DISCH >30 MIN Diagnoses Abdominal pain R10.9
--- NOTE | 2024-12-07 10:42 | Surgery Progress Note ---
Date of Service December 07, 2024 Assessment & Plan (1) S/P appendectomy: Plan: POD #1 robotic appendectomy, doing well. WBC stable to slightly up from yesterday. Symptoms improved. Okay to discharge to home from surgery standpoint Wound care instructions and activity restrictions reviewed Follow-up in general surgery clinic in 2 weeks, return precautions given, call with questions or concerns APAP and/or NSAIDs as needed pain, oxycodone Rx for breakthrough Admission and Anticipated Discharge Date Admission Date: December 06, 2024 Subjective POD #1 robotic appendectomy. Feeling much better, symptoms she had prior to surgery are gone. Physical Exam Constitutional: WD/WN, vitals as above Gastrointestinal (Abdomen): normal bowel sounds, soft, nontender, no hepatosplenomegaly Inspection/Auscultation: + abdominal surgical incision (No infection) Results & Data Vital Signs (Past 12 Hours) Vital Signs Temp Pulse Resp BP Pulse Ox O2 Del Method 12/07/24 07:00 Room Air 12/07/24 07:00 36.7 C 75 14 134/63 95 Room Air 12/07/24 04:00 37.1 C 76 16 102/79 96 Room Air Laboratory Results Laboratory Results - last 24 hr 12/07/24 05:24 WBC 16.51 H RBC 3.63 L Hgb 12.1 Hct 34.7 L MCV 95.6 MCH 33.3 MCHC 34.9 RDW Std Deviation 44.9 RDW Coeff of Duran 12.7 Plt Count 191 MPV 10.0 Immature Gran % (Auto) 0.5 Neut % (Auto) 77.7 Lymph % (Auto) 11.6 [place] % (Auto) 10.0 Eos % (Auto) 0.1 Baso % (Auto) 0.1 Neut # (Auto) 12.84 H Lymph # (Auto) 1.92 [place] # (Auto) 1.65 H Eos # (Auto) 0.01 Baso # (Auto) 0.01 Immature Gran # (Auto) 0.08 Sodium 142 Potassium 3.8 Chloride 109 H Carbon Dioxide 25 Anion Gap 8 BUN 11 Creatinine 0.73 Est Cr Clr Drug Dosing 57.2 eGFR 84.12 BUN/Creatinine Ratio 15.1 Glucose 125 H Calcium 8.4 L PG Care Time/CCT Total # of Minutes Spent Total Time Spent with Patient: Total time spent is greater than 50% in coordination of care (as documented) at patient's floor/unit and/or counseling patient: Coding Level of Care Code 63373 Post Operative Follow-Up Diagnoses S/P appendectomy Z90.49
--- NOTE | 2024-12-08 06:40 | Electrocardiogram Report ---
Test Reason : Blood Pressure : */* mmHG Vent. Rate : 65 BPM Atrial Rate : 65 BPM P-R Int : 140 ms QRS Dur : 78 ms QT Int : 426 ms P-R-T Axes : 42 9 44 degrees QTcB Int : 443 ms Sinus rhythm with Premature atrial complexes Otherwise normal ECG When compared with ECG of 30-Mar-2024 11:10, Premature atrial complexes are now Present Confirmed by El Perez ([id number]) on 12/08/2024 6:39:54 AM Referred By: REFERRED SELF Confirmed By: El Perez
== END 2024-12-07 11:39 | disposition home or self-care (01) ==
LOC: ED 20:55 → SUATTDRO 12-06 01:35 → EDINP 12-06 01:35 → INTOOBSV 12-06 01:35 → EDINP 12-06 08:53 → 3W 12-06 13:27